=== PATIENT | male | born 1960 | race Hispanic/Latino ===

== ENCOUNTER 2016-12-20 01:02 | Emergency (ER) | payer OTHER ==
[2016-12-20 01:57] LABS: Basophils % (Auto) 0.8 % (0.0-1.8); Eosinophils % (Auto) 1.9 % (0.0-4.3); Hematocrit 48.8 % (35.5-45.6); Hemoglobin 16.4 gm/dl (11.8-15.2); Mean Corpuscular HGB Conc 34 % (32-34); Mean Corpuscular Hemoglobin 32 pg (28-32); Mean Corpuscular Volume 94 fl (84-94); Platelet Count 182 K/mm3 (140-440); Red Blood Count 5.19 M/mm3 (3.65-5.03); Red Cell Distribution Width 13.9 % (13.2-15.2); White Blood Count 8.2 K/mm3 (4.5-11.0)
[2016-12-20 02:20] LABS: Bacteria,Urine 1+ /HPF (Negative); Bilirubin,Urine NEG (Negative); Blood,Urine SM (Negative); Ketones,Urine TR mg/dL (Negative); Leukocyte Esterase,Urine SM (Negative); Mucus,Urine 3+ /HPF; Nitrite,Urine NEG (Negative); Protein,Urine <15 mg/dL mg/dL (Negative); Urobilinogen,Urine < 2.0 mg/dL (<2.0)
[2016-12-20 02:22] LABS: Alanine Aminotransferase 15 units/L (7-56); Albumin 4.1 g/dL (3.9-5); Albumin/Globulin Ratio 1.6 %; Alkaline Phosphatase 70 units/L (35-129); Anion Gap 19 mmol/L; BUN/Creatinine Ratio 14.28; Bilirubin,Total 0.4 mg/dL (0.1-1.2); Blood Urea Nitrogen 10 mg/dL (9-20); Calcium 9.1 mg/dL (8.4-10.2); Carbon Dioxide 22 mmol/L (22-30); Chloride 105.7 mmol/L (98-107); Glucose 99 mg/dL (75-100); Lipase 21 units/L (13-60); Potassium 3.6 mmol/L (3.6-5.0); Sodium 143 mmol/L (137-145); Total Protein 6.7 g/dL (6.3-8.2)
--- NOTE | 2016-12-20 10:51 | Emergency Department Report ---
<JOAQUÍN LEGER - Last Filed: 12/20/16 18:43> ED Abdominal Pain HPI - General Chief Complaint: Abdominal Pain Stated Complaint: RT SIDE PAIN Time Seen by Provider: 12/20/16 10:47 Source: patient Mode of arrival: Ambulatory Limitations: No Limitations - History of Present Illness Initial Comments: Patient complaining of 2 weeks intermittent right lower quadrant pain patient denies nausea vomiting or diarrhea associated with this pain, also denies fever or chills, or testicular pain. Patient noted have a bag of food with him in the exam room. MD Complaint: abdominal pain -: week(s) Location: RLQ Migration to: no migration Severity: moderate Severity scale (0 -10): 5 Quality: aching Consistency: intermittent, colicky Worsens With: movement Associated Symptoms: denies: nausea, vomiting, diarrhea, fever, chills, constipation, dysuria - Related Data Previous Rx's Medication Instructions Recorded Last Taken Type Ciprofloxacin [Ciprofloxacin ORAL 500 mg PO Q12H #28 ml 12/20/16 Unknown Rx LIQ] metroNIDAZOLE [Flagyl] 500 mg PO Q12HR #28 tab 12/20/16 Unknown Rx Allergies Allergy/AdvReac Type Severity Reaction Status Date / Time morphine Allergy Vomiting Verified 12/20/16 01:24 sulfamethoxazole Allergy Rash Verified 12/20/16 01:24 [From Bactrim] trimethoprim [From Bactrim] Allergy Rash Verified 12/20/16 01:24 ED Review of Systems ROS: Stated complaint: RT SIDE PAIN Other details as noted in HPI Constitutional: denies: chills, fever, malaise Eyes: as per HPI Respiratory: denies: cough, orthopnea, shortness of breath, SOB with exertion, SOB at rest, wheezing Cardiovascular: denies: chest pain, palpitations, dyspnea on exertion, orthopnea , edema, syncope Gastrointestinal: abdominal pain. denies: nausea, vomiting, diarrhea, constipation Genitourinary: denies: urgency, dysuria, frequency, hematuria, discharge, testicular pain, testicular mass Musculoskeletal: denies: back pain Skin: denies: rash, lesions Neurological: denies: headache, paresthesias, vertigo ED Past Medical Hx - Past Medical History Previous Medical History?: Yes Hx Hypertension: Yes Additional medical history: diverticulitis. high cholestrol. Vit D decfinacy - Surgical History Past Surgical History?: No - Medications Home Medications: Home Medications Medication Instructions Recorded Confirmed Last Taken Type Ciprofloxacin [Ciprofloxacin ORAL 500 mg PO Q12H #28 ml 12/20/16 Unknown Rx LIQ] metroNIDAZOLE [Flagyl] 500 mg PO Q12HR #28 tab 12/20/16 Unknown Rx ED Physical Exam - General Limitations: No Limitations General appearance: alert, in no apparent distress - Head Head exam: Present: atraumatic, normocephalic - Eye Eye exam: Present: normal appearance, PERRL, EOMI. Absent: scleral icterus - ENT ENT exam: Present: normal exam, mucous membranes moist - Neck Neck exam: Present: normal inspection, full ROM. Absent: tenderness, meningismus, lymphadenopathy - Respiratory Respiratory exam: Present: normal lung sounds bilaterally. Absent: respiratory distress, wheezes - Cardiovascular Cardiovascular Exam: Present: regular rate - GI/Abdominal GI/Abdominal exam: Present: soft, tenderness ([id number] right lower quadrant tenderness on palpation). Absent: distended, guarding, rebound - Extremities Exam Extremities exam: Present: normal inspection. Absent: normal capillary refill - Back Exam Back exam: Present: normal inspection. Absent: CVA tenderness (R), CVA tenderness (L) - Neurological Exam Neurological exam: Present: alert, oriented X3, CN II-XII intact - Skin Skin exam: Present: warm, dry, intact, normal color. Absent: rash ED Course Vital Signs 12/20/16 12/20/16 12/20/16 01:19 05:53 10:45 Temperature 98.4 F 98.1 F 98.5 F Pulse Rate 92 H 76 79 Respiratory 20 16 20 Rate Blood Pressure 122/88 121/78 Blood Pressure 131/82 [Right] O2 Sat by Pulse 97 97 98 Oximetry - Reevaluation(s) Reevaluation #1: 12/20/16 13:19 still resting comfortably in his room. Patient still has right lower quadrant pain on palpation. Still normotensive normal cardiac and afebrile 12/20/16 13:[address] and laboratory findings patient, will treat patient for diverticulitis which he says he has recurrent history of was just recently treated for. 12/20/16 18:44 ED Medical Decision Making - Lab Data Result diagrams: 12/20/16 01:38 12/20/16 01:38 Lab Results 0412/20/16 12/20/16 Range/Units 01:38 01:38 Unknown WBC 8.2 (4.5-11.0) K/mm3 RBC 5.19 H (3.65-5.03) M/mm3 Hgb 16.4 H (11.8-15.2) gm/dl Hct 48.8 H (35.5-45.6) % MCV 94 (84-94) fl MCH 32 (28-32) pg MCHC 34 (32-34) % RDW 13.9 (13.2-15.2) % Plt Count 182 (140-440) K/mm3 Lymph % (Auto) 35.2 H (13.4-35.0) % [place] % (Auto) 7.9 H (0.0-7.3) % Eos % (Auto) 1.9 (0.0-4.3) % Baso % (Auto) 0.8 (0.0-1.8) % Lymph # 2.9 (1.2-5.4) K/mm3 [place] # 0.6 (0.0-0.8) K/mm3 Eos # 0.2 (0.0-0.4) K/mm3 Baso # 0.1 (0.0-0.1) K/mm3 Seg Neutrophils % 54.2 (40.0-70.0) % Seg Neutrophils # 4.4 (1.8-7.7) K/mm3 Sodium 143 (137-145) mmol/L Potassium 3.6 (3.6-5.0) mmol/L Chloride 105.7 (98-107) mmol/L Carbon Dioxide 22 (22-30) mmol/L Anion Gap 19 mmol/L BUN 10 (9-20) mg/dL Creatinine 0.7 L (0.8-1.5) mg/dL Estimated GFR > 60 ml/min BUN/Creatinine Ratio 14.28 % Glucose 99 (75-100) mg/dL Calcium 9.1 (8.4-10.2) mg/dL Total Bilirubin 0.4 (0.1-1.2) mg/dL AST 17 (5-40) units/L ALT 15 (7-56) units/L Alkaline Phosphatase 70 (35-129) units/L Total Protein 6.7 (6.3-8.2) g/dL Albumin 4.1 (3.9-5) g/dL Albumin/Globulin Ratio 1.6 % Lipase 21 (13-60) units/L Urine Color Yellow (Yellow) Urine Turbidity Clear (Clear) Urine pH 5.0 (5.0-7.0) Ur Specific [place] 1.023 (1.003-1.030) Urine Protein <15 mg/dl (Negative) mg/dL Urine Glucose (UA) Neg (Negative) mg/dL Urine Ketones Tr (Negative) mg/dL Urine Blood Sm (Negative) Urine Nitrite Neg (Negative) Urine Bilirubin Neg (Negative) Urine Urobilinogen < 2.0 (<2.0) mg/dL Ur Leukocyte Esterase Sm (Negative) Urine WBC (Auto) 1.0 (0.0-6.0) /HPF Urine RBC (Auto) 7.0 (0.0-6.0) /HPF U Epithel Cells (Auto) < 1.0 (0-13.0) /HPF Urine Bacteria (Auto) 1+ (Negative) /HPF Urine Mucus 3+ /HPF Critical care attestation.: If time is entered above; I have spent that time in minutes in the direct care of this critically ill patient, excluding procedure time. ED Disposition Disposition: DISCHARGED TO HOME OR SELFCARE Is pt being admited?: No Condition: Stable Instructions: Diverticulitis (ED) Prescriptions: Ciprofloxacin [Ciprofloxacin ORAL LIQ] 500 mg PO Q12H #28 ml metroNIDAZOLE [Flagyl] 500 mg PO Q12HR #28 tab Referrals: AARON RAY MD [Primary Care Provider] - 3-5 Days <JC BARNETT - Last Filed: 12/22/16 02:04> ED Medical Decision Making - Lab Data Result diagrams: 12/20/16 01:38 12/20/16 01:38 - Radiology Data Radiology results: report reviewed (ct a/p: reviewed)
[2016-12-20] MEDS ORDERED: NACL 0.9% 1000 ML 1,000 ML IV ONE (11:14)
[2016-12-20] MEDS ORDERED: TORADOL IV ONE (11:14)
--- NOTE | 2016-12-20 12:54 | Cat Scan Report ---
CT abdomen and pelvis with contrast: Transverse images are obtained from lower chest to the ischium. Coronal and sagittal 2-D reformatted images are included. The visualized lung bases are unremarkable. There is a 3 cm splenic cyst. There is a 3.7 cm sharply defined low attenuation mass in his knee 18 mm mass in the medial right kidney that appears the same. in the upper pole of the left kidney. There is a 4.35 cm similar mass in the mid to lower kidney. There is an 8 mm nonobstructing calculus in the upper pole of the right kidney. The abdominal and retroperitoneal organs otherwise appear unremarkable. The abdominal aorta is unremarkable. There is no adenopathy noted. The bowel is unopacified. The appendix is visualized and appears normal. There are numerous diverticula in the sigmoid colon. There are inflammatory changes in the mesentery adjacent to the low sigmoid colon with linear extensions to the colon and an adjacent loop of small bowel. No fluid collections identified. No free air and no free fluid noted. The prostate gland appears slightly prominent in size with degenerative calcifications. Degenerative spondylosis is present through the lower thoracic and upper lumbar spine. Degenerative gas is identified at the L4-5 interspace and there is narrowing at L1-2 and L5-S1 interspaces. Impressions: 1. Sigmoid diverticulitis. Doubt perforation. 2. Bilateral renal cysts and nonobstructing right renal calculus. Described in 2012. 3. Splenic cyst described previously in 2012. 4. Degenerative lumbar spine changes.
[2016-12-20 13:45] VITALS: BP 131/82
== END 2016-12-20 13:52 | disposition home or self-care (01) ==
LOC: ED 01:02
DX: R10.31 Right lower quadrant pain (principal); I10 Essential (primary) hypertension; E78.00 Pure hypercholesterolemia, unspecified; Z88.5 Allergy status to narcotic agent; Z88.8 Allergy status to other drugs, medicaments and biological substances
CPT/HCPCS: 36415; 74177; 80053; 81001; 83690; 85025; 96361; 96374; 99284; J1885; J7030; Q9967

== ENCOUNTER 2018-01-01 22:04 | Inpatient (IN) | payer OTHER ==
[2018-01-02 01:26] LABS: Basophils % (Auto) 0.2 % (0.0-1.8); Hematocrit 47.1 % (35.5-45.6); Hemoglobin 15.8 gm/dl (11.8-15.2); Lymphocytes # (Auto) 0.8 K/mm3 (1.2-5.4); Lymphocytes % (Auto) 6.1 % (13.4-35.0); Mean Corpuscular HGB Conc 34 % (32-34); Mean Corpuscular Hemoglobin 33 pg (28-32); Mean Corpuscular Volume 97 fl (84-94); Monocytes # (Auto) 0.7 K/mm3 (0.0-0.8); Monocytes % (Auto) 4.9 % (0.0-7.3); Platelet Count 171 K/mm3 (140-440); Red Blood Count 4.85 M/mm3 (3.65-5.03); Red Cell Distribution Width 14.5 % (13.2-15.2)
[2018-01-02 01:42] LABS: Alanine Aminotransferase 12 units/L (7-56); Albumin 4.6 g/dL (3.9-5); BUN/Creatinine Ratio 13; Blood Urea Nitrogen 10 mg/dL (9-20); Hemolysis Index 8
[2018-01-02 02:25] LABS: Bilirubin,Urine NEG (Negative); Blood,Urine SM (Negative); Color,Urine Yellow (Yellow); Mucus,Urine FEW /HPF; Protein,Urine <15 mg/dL mg/dL (Negative); Urobilinogen,Urine < 2.0 mg/dL (<2.0)
[2018-01-02] MEDS ORDERED: ZOFRAN IV ONE (08:16)
[2018-01-02] MEDS ORDERED: DILAUDID IV ONE ×2 (08:16→10:17)
[2018-01-02] MEDS ORDERED: NACL 0.9% 500 ML 500 ML IV ONE (08:17)
--- NOTE | 2018-01-02 08:53 | Emergency Department Report ---
ED Abdominal Pain HPI - General Chief Complaint: Abdominal Pain Stated Complaint: ABD PAIN Time Seen by Provider: 01/02/18 08:10 Source: patient Mode of arrival: Ambulatory Limitations: No Limitations - History of Present Illness Initial Comments: 57-year-old male with a past medical history of hypertension, diverticulitis, and no previous abdominal surgeries presents complaining of right lower quadrant pain 1 day. It is constant, sharp, moderate to severe in intensity. Worse with palpation. No alleviating factors. Denies nausea, vomiting, fever, diarrhea, melena, hematochezia. Similar symptoms in the past with diagnosed diverticulitis last year but this pain episode is worse. Severity scale (0 -10): 8 - Related Data Previous Rx's Medication Instructions Recorded Last Taken Type Ciprofloxacin [Ciprofloxacin ORAL 500 mg PO Q12H #28 ml 12/20/16 Unknown Rx LIQ] metroNIDAZOLE [Flagyl] 500 mg PO Q12HR #28 tab 12/20/16 Unknown Rx Allergies Allergy/AdvReac Type Severity Reaction Status Date / Time morphine Allergy Vomiting Verified 12/20/16 01:24 sulfamethoxazole Allergy Rash Verified 12/20/16 01:24 [From Bactrim] trimethoprim [From Bactrim] Allergy Rash Verified 12/20/16 01:24 ED Review of Systems ROS: Stated complaint: ABD PAIN Other details as noted in HPI Comment: All other systems reviewed and negative ED Past Medical Hx - Past Medical History Previous Medical History?: Yes Hx Hypertension: Yes Additional medical history: diverticulitis. high cholestrol. Vit D decfinacy - Surgical History Past Surgical History?: No - Social History Smoking Status: Current Some Day Smoker Substance Use Type: None - Medications Home Medications: Home Medications Medication Instructions Recorded Confirmed Last Taken Type Ciprofloxacin [Ciprofloxacin ORAL 500 mg PO Q12H #28 ml 12/20/16 Unknown Rx LIQ] metroNIDAZOLE [Flagyl] 500 mg PO Q12HR #28 tab 12/20/16 Unknown Rx ED Physical Exam - General Limitations: No Limitations - Other Other exam information: General: No limitations, patient is alert in no acute distress Head exam: Atraumatic, normocephalic Eyes exam: Normal appearance, nonicteric sclerae ENT: Moist mucous membrane, normal oropharynx Neck exam: Normal inspection, full range of motion, no meningismus nontender Respiratory exam: Clear to auscultation bilateral, no wheezes, rales, crackles Cardiovascular: Normal rate and rhythm, normal heart sounds Abdomen: Soft, nondistended, right lower quadrant tenderness, with normal bowel sounds, no rebound, or guarding Extremity: Full range of motion normal inspection no deformity Back: Normal Inspection, full range of motion, no tenderness Neurologic: Alert, oriented x3, cranial nerves intact, no motor or sensory deficit Psychiatric: normal affect, normal mood Skin: Warm, dry, intact ED Course Vital Signs 01/02/18 01/02/18 01/02/18 00:56 04:30 07:43 Temperature 99.5 F 98.9 F Pulse Rate 98 H 93 H 86 Respiratory 18 16 18 Rate Blood Pressure 148/79 124/74 Blood Pressure 113/63 [Left] O2 Sat by Pulse 98 98 96 Oximetry 01/02/18 01/02/18 07:44 09:27 Temperature Pulse Rate Respiratory 18 18 Rate Blood Pressure Blood Pressure [Left] O2 Sat by Pulse 96 Oximetry - Reevaluation(s) Reevaluation #1: 01/02/18 09:57 no improvement in pain with dilaudid 0.5mg, no nausea, additional meds ordered - Consultations Consultation #1: 01/02/18 10:07 Dr Modi to consult 01/02/18 10:18 case d/w Dr modi Recommend to remain nothing by mouth, continue Zosyn, he will evaluate patient ED Medical Decision Making - Lab Data Result diagrams: 01/02/18 01:01 01/02/18 01:04 Lab Results 01/02/18 01/02/18 01/02/18 Range/Units 01:01 01:04 01:55 WBC 13.7 H (4.5-11.0) K/mm3 RBC 4.85 (3.65-5.03) M/mm3 Hgb 15.8 H (11.8-15.2) gm/dl Hct 47.1 H (35.5-45.6) % MCV 97 H (84-94) fl MCH 33 H (28-32) pg MCHC 34 (32-34) % RDW 14.5 (13.2-15.2) % Plt Count 171 (140-440) K/mm3 Lymph % (Auto) 6.1 L (13.4-35.0) % [place] % (Auto) 4.9 (0.0-7.3) % Eos % (Auto) 0.0 (0.0-4.3) % Baso % (Auto) 0.2 (0.0-1.8) % Lymph # 0.8 L (1.2-5.4) K/mm3 [place] # 0.7 (0.0-0.8) K/mm3 Eos # 0.0 (0.0-0.4) K/mm3 Baso # 0.0 (0.0-0.1) K/mm3 Seg Neutrophils % 88.8 H (40.0-70.0) % Seg Neutrophils # 12.2 H (1.8-7.7) K/mm3 Sodium 138 (137-145) mmol/L Potassium 4.7 (3.6-5.0) mmol/L Chloride 97.5 L (98-107) mmol/L Carbon Dioxide 24 (22-30) mmol/L Anion Gap 21 mmol/L BUN 10 (9-20) mg/dL Creatinine 0.8 (0.8-1.5) mg/dL Estimated GFR > 60 ml/min BUN/Creatinine Ratio 13 % Glucose 104 H (75-100) mg/dL Calcium 9.0 (8.4-10.2) mg/dL Total Bilirubin 0.80 (0.1-1.2) mg/dL AST 13 (5-40) units/L ALT 12 (7-56) units/L Alkaline Phosphatase 83 (35-129) units/L Total Protein 6.6 (6.3-8.2) g/dL Albumin 4.6 (3.9-5) g/dL Albumin/Globulin Ratio 2.3 % Urine Color Yellow (Yellow) Urine Turbidity Clear (Clear) Urine pH 5.0 (5.0-7.0) Ur Specific [place] 1.014 (1.003-1.030) Urine Protein <15 mg/dl (Negative) mg/dL Urine Glucose (UA) Neg (Negative) mg/dL Urine Ketones 20 (Negative) mg/dL Urine Blood Sm (Negative) Urine Nitrite Neg (Negative) Urine Bilirubin Neg (Negative) Urine Urobilinogen < 2.0 (<2.0) mg/dL Ur Leukocyte Esterase Tr (Negative) Urine WBC (Auto) 1.0 (0.0-6.0) /HPF Urine RBC (Auto) 2.0 (0.0-6.0) /HPF U Epithel Cells (Auto) < 1.0 (0-13.0) /HPF Urine Mucus Few /HPF - Radiology Data Radiology results: report reviewed ct a/p IV contrast read by radiologist: IMPRESSION: Acute sigmoid diverticulitis. Trace free peritoneal air is identified but no evidence for abscess at this time. Bilateral renal cysts. Right renal calculus, nonobstructing. - Medical Decision Making Lower quadrant pain secondary to acute sigmoid diverticulitis with trace free air. Patient given Zosyn, dilaudid, zofran in the ED. Surgery consulted. Plan to admit the hospital. - Differential Diagnosis appendicitis, diverticulitis, UTI, renal colic Critical Care Time: No Critical care attestation.: If time is entered above; I have spent that time in minutes in the direct care of this critically ill patient, excluding procedure time. ED Disposition Clinical Impression: Acute diverticulitis, Free intraperitoneal air Disposition: 09 OP ADMIT IP TO THIS HOSP Is pt being admited?: Yes Condition: Stable Time of Disposition: 09:57 (hospitalist/Dr Mcdaniel/Dr Hirsch)
[2018-01-02] MEDS ORDERED: ZOSYN/NS 4.5GM/100ML 4.5 GM/100 ML VIAL IV SCH (09:00)
--- NOTE | 2018-01-02 09:37 | Cat Scan Report ---
CT ABDOMEN PELVIS WITH CONTRAST: HISTORY: Right lower quadrant pain, history of diverticulitis. COMPARISON: 12/20/16. TECHNIQUE: Helical CT in 1.25mm intervals following IV contrast. Sagittal and coronal reconstructions. FINDINGS: Lung bases: Normal. Liver: Normal. Biliary system: Normal. Pancreas: Normal. Spleen: Normal size spleen. A 2.5 cm cyst with focal wall calcification is noted in the anterior spleen which is unchanged. Kidneys/ureters/bladder: There are 2 simple cysts in the superior left kidney measuring 4.6 cm and 3.4 cm. A 1 cm cyst is noted in the mid right kidney. An 8 mm calyceal stone is noted at the inferior pole of the right kidney. Ureters and bladder are unremarkable. The prostate gland is mildly enlarged measuring 5.9 cm in diameter. Adrenal glands: Normal. Aorta: Normal. Intestines: There are scattered diverticula in the sigmoid colon with mild circumferential bowel wall thickening and surrounding fat stranding. This is consistent with acute sigmoid diverticulitis. There is no evidence for abscess, however, trace to small free air is identified in the right lower quadrant mesentery and along the anterior abdominal wall. Appendix: Normal. Pelvic viscera: Normal. Ascites: None. Adenopathy: None. Musculoskeletal: There is moderate thoracolumbar spondylosis. No evidence for fracture or suspicious bony lesion. IMPRESSION: Acute sigmoid diverticulitis. Trace free peritoneal air is identified but no evidence for abscess at this time. Bilateral renal cysts. Right renal calculus, nonobstructing. These findings were discussed with Dr. Campos in the emergency department at 0920 hours.
--- NOTE | 2018-01-02 12:17 | History and Physical Report ---
History of Present Illness Date of examination: 01/02/18 Date of admission: 01/02/18 10:08 Chief complaint: Abdominal pains History of present illness: Patient is a 57 yo man with a history of hypertension, tobacco dependency, insomnia, dyslipidemia and recurrent diverticulitis who presents to the ED with severe right lower quadrant non radiating pains, achy, throbbing and non- radiating that started on Sunday as intermittent pains, now constant and severe without aggravating or relieving factors. He denies n/v/fevers/chills/cough/cp/ sob. The abd pains is similar to prior attacks; his last attack was about 1 year ago. He usually is treated with 2 iv abx for couple of days then discharge. He is followed closely by GI, Dr. Olmstead. PMH: as hpi, also bph PSH: tonsillectomy SH: 1 pack cig/week, no etoh or illegal drug use FH: sister and brother have hypertension and dm ROS: Constitutional: denies: fever ENT: denies: throat or neck pain Respiratory: denies: cough, shortness of breath Cardiovascular: denies: chest pain Endocrine: denies unexplained weight loss or gain Gastrointestinal: + abdominal pains, no nausea Genitourinary: denies: dysuria Rectal: denies no incontinence, no bleeding, no itching, no discharge Musculoskeletal: denies swelling, myaglia, muscle weakness Skin: denies: rash Neurological: denies: headache Hematological/Lymphatic: denies: easy bleeding or easy bruising Allergic/Immunologic: no urticaria, no allergic rhinitis, no anaphylaxis Psych: denies sadness or hopelessness, SI/HI Medications and Allergies Allergies Allergy/AdvReac Type Severity Reaction Status Date / Time morphine Allergy Vomiting Verified 12/20/16 01:24 sulfamethoxazole Allergy Rash Verified 12/20/16 01:24 [From Bactrim] trimethoprim [From Bactrim] Allergy Rash Verified 12/20/16 01:24 Home Medications Medication Instructions Recorded Confirmed Last Taken Type metroNIDAZOLE [Flagyl] 500 mg PO Q12HR #28 tab 12/20/16 01/02/18 01/01/[address] [Voltaren Dr] 75 mg PO BID 01/02/18 01/02/18 01/01/18 History Dicyclomine [Bentyl] 10 mg PO QID 01/02/18 01/02/18 01/01/18 History Ergocalciferol [Vitamin D2] 1 cap PO QWEEK 01/02/18 01/02/18 01/01/18 History Levofloxacin [Levaquin TAB] 500 mg PO QDAY 01/02/18 01/02/18 01/01/18 History Omeprazole 20 mg PO DAILY 01/02/18 01/02/18 01/01/18 History Pravastatin [Pravachol] 20 mg PO QHS 01/02/18 01/02/18 01/01/18 History Tamsulosin [Flomax] 0.4 mg PO QDAY 01/02/18 01/02/18 01/01/18 History Zolpidem [Ambien] 10 mg PO QHS 01/02/18 01/02/18 01/01/18 History amLODIPine [Norvasc] 5 mg PO BID 01/02/18 01/02/18 01/01/18 History Active Meds: Active Medications Piperacillin Sod/Tazobactam Sod (Zosyn/Ns 4.5gm/100ml) 4.5 gm in 100 mls @ 200 mls/hr IV ONCE MILA Last Infusion: 01/02/18 11:24 Dose: Infused Exam - Physical Exam Narrative exam: GEN: WDWN, NAD, Awake, Alert, Orientated HEENT: NCAT, EOMI, PERRL, OP Clear NECK: supple, no adenopathy, no thyromegaly, no JVD CVS/HEART: RRR, normal S1S2, pulses present bilaterally CHEST/LUNGS: CTA B, Symmetrical chest expansion, good air entry bilaterally GI/Abdomen: soft, NTND, good bowel sounds, no guarding or rebound /Bladder: no suprapubic tenderness, no CVA or paraspinal tenderness EXT/Skin: no c/c/e, no obvious rash MSK: FROM x 4 Neuro: CN 2-12 grossly intact, no new focal deficits Psych: calm - Constitutional Vitals: Temp Pulse Resp BP Pulse Ox 98.9 F 91 H 20 133/55 95 01/02/18 07:43 01/02/18 11:00 01/02/18 11:50 01/02/18 11:00 01/02/18 11:00 Results - Labs CBC & Chem 7: 01/02/18 01:01 01/02/18 01:04 Labs: Abnormal lab results 01/02/18 01/02/18 Range/Units 01:01 01:04 WBC 13.7 H (4.5-11.0) K/mm3 Hgb 15.8 H (11.8-15.2) gm/dl Hct 47.1 H (35.5-45.6) % MCV 97 H (84-94) fl MCH 33 H (28-32) pg Lymph % (Auto) 6.1 L (13.4-35.0) % Lymph # 0.8 L (1.2-5.4) K/mm3 Seg Neutrophils % 88.8 H (40.0-70.0) % Seg Neutrophils # 12.2 H (1.8-7.7) K/mm3 Chloride 97.5 L (98-107) mmol/L Glucose 104 H (75-100) mg/dL Assessment and Plan Patient is a 57 yo man with a history of hypertension, tobacco dependency, insomnia, dyslipidemia and recurrent diverticulitis who presents to the ED with severe right lower quadrant non radiating pains, achy, throbbing and non- radiating that started on Sunday as intermittent pains, now constant and severe without aggravating or relieving factors. He denies n/v/fevers/chills/cough/cp/ sob. The abd pains is similar to prior attacks; his last attack was about 1 year ago. He usually is treated with 2 iv abx for couple of days then discharge. He is followed closely by GI, Dr. Olmstead. CT abd/pelvis with iv contrast IMPRESSION: Acute sigmoid diverticulitis. Trace free peritoneal air is identified but no evidence for abscess at this time. Bilateral renal cysts. Right renal calculus, nonobstructing. -Sepsis, poa as evident by heart rate 98, wbc 13.7 with diverticulitits: treat with ivf, iv abx -Acute Diverticulitis with possible microperfortation: bowel rest, iv abx, General surgery already consulted by ED physician -Hypertension: hold oral antihypertensive, use iv labetalolo prn -Tobacco dependency: claims counsel on stopping -Insomnia: hold oral ambien, use prn iv ativan Dvt/gi ppx reviewed
[2018-01-02] MEDS ORDERED: NORMODYNE IV PRN (13:12)
[2018-01-02] MEDS: FLAGYL 500 MG/100 ML 500 MG/100 ML BAG IV SCH ×2 (14:00→22:38)
[2018-01-02] MEDS: LEVAQUIN 500MG/100ML 500 MG/100 ML BAG IV SCH (14:00)
--- NOTE | 2018-01-02 15:03 | Progress Note ---
Assessment and Plan Full consult dictated Chief complaint: RLQ abd paiin History of present illness: Patient is a 57 yo man with a history of hypertension, tobacco dependency, insomnia, dyslipidemia and recurrent diverticulitis who presents to the ED with severe right lower quadrant non radiating pains, achy, throbbing and non- radiating that started on Sunday as intermittent pains, now constant and severe without aggravating or relieving factors. He denies n/v/fevers/chills/cough/cp/ sob. The abd pains is similar to prior attacks; his last attack was about 1 year ago. He usually is treated with 2 iv abx for couple of days then discharge. He is followed closely by GI, Dr. Olmstead. Pt "feeling better" hx of "multiple attacks of diverticulitis in the past" refuses surg Abd - localized RLQ tenderness with guarding. rest of abd soft, non tender CT - microperforation of diverticulits is redundant sigmoid colon (flops to RLQ ). No evidence of free fluid or abscess formation. imp - recurrent diverticulits with microperforation. pt refusing surg at this time "feeling better" rec strict NPO IVF hydration. IV Levaquin & Flagyl as you are doing f/u cbc in am will follow and reassess clinically in am Selected Entries 01/02/18 11:57 Temperature 99.0 F Pulse Rate 86 Respiratory 22 Rate Blood Pressure 106/63 Laboratory Tests 01/02/18 01/02/18 01:01 01:04 WBC 13.7 H Hgb 15.8 H Hct 47.1 H Sodium 138 Potassium 4.7 Chloride 97.5 L Carbon Dioxide 24 BUN 10 Creatinine 0.8 Objective Vital Signs - 12hr 01/02/18 01/02/18 01/02/18 04:30 07:32 07:43 Temperature 98.9 F Pulse Rate 93 H 86 Respiratory 16 18 Rate Blood Pressure 124/74 Blood Pressure 113/63 [Left] O2 Sat by Pulse 98 96 96 Oximetry 01/02/18 01/02/18 01/02/18 07:44 07:46 08:00 Temperature Pulse Rate 88 85 Respiratory 18 18 29 H Rate Blood Pressure 113/63 122/65 Blood Pressure [Left] O2 Sat by Pulse 96 94 Oximetry 01/02/18 01/02/18 01/02/18 08:16 08:30 09:06 Temperature Pulse Rate 86 85 87 Respiratory 14 22 18 Rate Blood Pressure 122/65 122/65 122/65 Blood Pressure [Left] O2 Sat by Pulse 98 96 94 Oximetry 01/02/18 01/02/18 01/02/18 09:16 09:27 09:30 Temperature Pulse Rate 86 88 Respiratory 24 18 21 Rate Blood Pressure 122/65 122/65 Blood Pressure [Left] O2 Sat by Pulse 97 94 Oximetry 01/02/18 01/02/18 01/02/18 09:46 10:00 10:16 Temperature Pulse Rate 88 91 H 91 H Respiratory 27 H 11 L 15 Rate Blood Pressure 122/65 133/55 133/55 Blood Pressure [Left] O2 Sat by Pulse 88 96 93 Oximetry 01/02/18 01/02/18 01/02/18 10:30 10:46 11:00 Temperature Pulse Rate 89 92 H 91 H Respiratory 17 20 16 Rate Blood Pressure 133/55 133/55 133/55 Blood Pressure [Left] O2 Sat by Pulse 94 92 95 Oximetry 01/02/18 01/02/18 01/02/18 11:10 11:50 11:57 Temperature 99.0 F Pulse Rate 100 H 86 Respiratory 23 20 22 Rate Blood Pressure 133/55 106/63 Blood Pressure [Left] O2 Sat by Pulse 94 93 Oximetry - Labs 01/02/18 01:01 01/02/18 01:04 Diabetes panel 01/02/18 Range/Units 01:04 Sodium 138 (137-145) mmol/L Potassium 4.7 (3.6-5.0) mmol/L Chloride 97.5 L (98-107) mmol/L Carbon Dioxide 24 (22-30) mmol/L BUN 10 (9-20) mg/dL Creatinine 0.8 (0.8-1.5) mg/dL Glucose 104 H (75-100) mg/dL Calcium 9.0 (8.4-10.2) mg/dL AST 13 (5-40) units/L ALT 12 (7-56) units/L Alkaline Phosphatase 83 (35-129) units/L Total Protein 6.6 (6.3-8.2) g/dL Albumin 4.6 (3.9-5) g/dL Calcium panel 01/02/18 Range/Units 01:04 Calcium 9.0 (8.4-10.2) mg/dL Albumin 4.6 (3.9-5) g/dL Pituitary panel 01/02/18 Range/Units 01:04 Sodium 138 (137-145) mmol/L Potassium 4.7 (3.6-5.0) mmol/L Chloride 97.5 L (98-107) mmol/L Carbon Dioxide 24 (22-30) mmol/L BUN 10 (9-20) mg/dL Creatinine 0.8 (0.8-1.5) mg/dL Glucose 104 H (75-100) mg/dL Calcium 9.0 (8.4-10.2) mg/dL Adrenal panel 01/02/18 Range/Units 01:04 Sodium 138 (137-145) mmol/L Potassium 4.7 (3.6-5.0) mmol/L Chloride 97.5 L (98-107) mmol/L Carbon Dioxide 24 (22-30) mmol/L BUN 10 (9-20) mg/dL Creatinine 0.8 (0.8-1.5) mg/dL Glucose 104 H (75-100) mg/dL Calcium 9.0 (8.4-10.2) mg/dL Total Bilirubin 0.80 (0.1-1.2) mg/dL AST 13 (5-40) units/L ALT 12 (7-56) units/L Alkaline Phosphatase 83 (35-129) units/L Total Protein 6.6 (6.3-8.2) g/dL Albumin 4.6 (3.9-5) g/dL
[2018-01-02] MEDS ORDERED: NARCAN 0.4 MG/1 ML IV PRN (16:55)
[2018-01-02] MEDS: DILAUDID IV PRN (18:25)
[2018-01-02] MEDS: PROTONIX IV SCH (18:53)
--- NOTE | 2018-01-02 21:48 | Consultation ---
REASON FOR CONSULTATION: Abdominal pain, rule out diverticulitis with possible microperforation. HISTORY OF PRESENT ILLNESS: The patient is a 57-year-old gentleman who was admitted today with approximately a 2-day history of right lower quadrant abdominal pain. Denies any nausea or vomiting. The patient states he has had a past history of multiple bouts of diverticulitis in the past, but adamantly refuses surgery at this time. He does; however, state he is than when I was admitted. PAST MEDICAL HISTORY: Pertinent for hypertension, high cholesterol. PAST SURGICAL HISTORY: Status post T and A. ALLERGIES: Allergic to BACTRIM AND MORPHINE. MEDICATIONS: Include his blood pressure medicines his high cholesterol. FAMILY HISTORY: Heart disease. SOCIAL HISTORY: Denies any ethanol intake. Smokes what he states is a pack per week for approximately 45 years. He states he the past. PHYSICAL EXAMINATION: GENERAL: At this time reveals the patient to be awake, alert, cooperative, resting comfortably in bed with no evidence of acute distress. VITAL SIGNS: Show him to be afebrile with a very low grade temperature of 99, blood pressure of 106/63, pulse of 86, respirations of 22. ABDOMEN: Examination of the abdomen reveals to be moderately obese. The abdomen is soft in the left lower quadrant, left upper quadrant and right upper quadrant areas. The right lower quadrant; however, does exhibit a localized tenderness with guarding. Bowel sounds are hypoactive. LABORATORY DATA: At present includes a CBC which shows a white count of 13.7, H and H is 15.8 and 47.1. Electrolytes are essentially within normal limits as are the LFTs. IMAGING DATA: A CT scan of the abdomen has been performed, which I have reviewed with Dr. Kelly, the radiologist. There is evidence of microperforation and a very redundant sigmoid colon, which loops over to the right lower quadrant. There are also very small pockets of minute gas bubbles in a couple of areas in the abdomen. However, there is no evidence of any free fluid or abscess formation. IMPRESSION: 1. At this time is that of a 57-year-old gentleman with a history of multiple diverticulitis attacks in the past. 2. Active and current diverticulitis with evidence of microperforation on CT. The patient at this time is adamantly refusing any surgery. RECOMMENDATIONS: To keep the patient strict n.p.o. IV fluid hydration. IV Levaquin and Flagyl as you are doing. I will repeat CBC in the morning and monitor clinically closely with you. JOB# [id number] GORDON/KIESHA
[2018-01-03] MEDS: DILAUDID IV PRN ×5 (01:23→22:53)
[2018-01-03] MEDS: FLAGYL 500 MG/100 ML 500 MG/100 ML BAG IV SCH ×3 (05:10→21:46)
[2018-01-03] MEDS: D5/0.45NS 1,000 ML IV SCH ×2 (05:12→18:24)
[2018-01-03 06:40] LABS: Basophils % (Auto) 0.2 % (0.0-1.8); Eosinophils # (Auto) 0.1 K/mm3 (0.0-0.4); Eosinophils % (Auto) 0.7 % (0.0-4.3); Hematocrit 40.4 % (35.5-45.6); Hemoglobin 13.8 gm/dl (11.8-15.2); Lymphocytes # (Auto) 1.6 K/mm3 (1.2-5.4); Lymphocytes % (Auto) 16.2 % (13.4-35.0); Mean Corpuscular HGB Conc 34 % (32-34); Mean Corpuscular Hemoglobin 33 pg (28-32); Mean Corpuscular Volume 97 fl (84-94); Monocytes # (Auto) 0.7 K/mm3 (0.0-0.8); Monocytes % (Auto) 7.2 % (0.0-7.3); Platelet Count 137 K/mm3 (140-440); Red Blood Count 4.18 M/mm3 (3.65-5.03); Red Cell Distribution Width 14.4 % (13.2-15.2)
[2018-01-03 07:04] LABS: BUN/Creatinine Ratio 14; Blood Urea Nitrogen 11 mg/dL (9-20); Calcium 8.7 mg/dL (8.4-10.2); Hemolysis Index 4
--- NOTE | 2018-01-03 08:02 | Progress Note ---
Assessment and Plan Pt afebrile. "feeling better" Abd soft. still RLQ abd tenderness. slightly improved but still present. wbc down to 9.9 stable keep npo continue present care Selected Entries 01/03/18 07:26 Temperature 97.8 F Pulse Rate 75 Respiratory 18 Rate Blood Pressure 111/62 Laboratory Tests 01/02/18 01/03/18 01:01 05:30 WBC 13.7 H 9.9 Hgb 15.8 H 13.8 Hct 47.1 H 40.4 D Objective Vital Signs - 12hr 01/02/18 01/03/18 01/03/18 23:20 01:23 07:26 Temperature 99.4 F 97.8 F Pulse Rate 80 75 Respiratory 18 18 18 Rate Blood Pressure 104/61 111/62 O2 Sat by Pulse 91 92 Oximetry - Labs 01/03/18 05:30 01/03/18 05:30 Diabetes panel 01/03/18 Range/Units 05:30 Sodium 140 (137-145) mmol/L Potassium 3.7 D (3.6-5.0) mmol/L Chloride 99.9 (98-107) mmol/L Carbon Dioxide 28 (22-30) mmol/L BUN 11 (9-20) mg/dL Creatinine 0.8 (0.8-1.5) mg/dL Glucose 96 (75-100) mg/dL Calcium 8.7 (8.4-10.2) mg/dL Calcium panel 01/03/18 Range/Units 05:30 Calcium 8.7 (8.4-10.2) mg/dL Pituitary panel 01/03/18 Range/Units 05:30 Sodium 140 (137-145) mmol/L Potassium 3.7 D (3.6-5.0) mmol/L Chloride 99.9 (98-107) mmol/L Carbon Dioxide 28 (22-30) mmol/L BUN 11 (9-20) mg/dL Creatinine 0.8 (0.8-1.5) mg/dL Glucose 96 (75-100) mg/dL Calcium 8.7 (8.4-10.2) mg/dL Adrenal panel 01/03/18 Range/Units 05:30 Sodium 140 (137-145) mmol/L Potassium 3.7 D (3.6-5.0) mmol/L Chloride 99.9 (98-107) mmol/L Carbon Dioxide 28 (22-30) mmol/L BUN 11 (9-20) mg/dL Creatinine 0.8 (0.8-1.5) mg/dL Glucose 96 (75-100) mg/dL Calcium 8.7 (8.4-10.2) mg/dL
--- NOTE | 2018-01-03 09:47 | Progress Note ---
Assessment and Plan Assessment and plan: Patient is a 57 yo man with a history of hypertension, tobacco dependency, insomnia, dyslipidemia and recurrent diverticulitis who presents to the ED with severe right lower quadrant non radiating pains, achy, throbbing and non- radiating that started on Sunday as intermittent pains, now constant and severe without aggravating or relieving factors. He denies n/v/fevers/chills/cough/cp/ sob. The abd pains is similar to prior attacks; his last attack was about 1 year ago. He usually is treated with 2 iv abx for couple of days then discharge. He is followed closely by GI, Dr. Olmstead. CT abd/pelvis with iv contrast IMPRESSION: Acute sigmoid diverticulitis. Trace free peritoneal air is identified but no evidence for abscess at this time. Bilateral renal cysts. Right renal calculus, nonobstructing. -Sepsis, poa as evident by heart rate 98, wbc 13.7 with diverticulitits: treat with ivf, iv abx -Acute Sigmoid Diverticulitis with microperfortation: bowel rest, iv abx, General surgery following, pain control with iv narcotics -Hypertension: hold oral antihypertensive, use iv labetalol prn -Tobacco dependency: correctional counselor on stopping -Insomnia: hold oral ambien, use prn iv ativan Dvt/gi ppx reviewed continue npo, ivf, iv abx labs stable, wbc normal now, no need to re-order tomorrow History Interval history: Patient was seen and examined. Follow-up on current diagnosis. Overnight uneventful. Patient denies any chest pain, shortness breath, nausea/vomiting or severe headaches. Imaging, nursing note, chart, labs and old chart reviewed. Discussed with patient. Hospitalist Physical - Physical exam Narrative exam: GEN: WDWN, NAD, Awake, Alert, Orientated x 3 HEENT: NCAT, EOMI, PERRL, OP Clear NECK: supple, no adenopathy, no thyromegaly, no JVD CVS/HEART: RRR, normal S1S2, pulses present bilaterally CHEST/LUNGS: CTA B, Symmetrical chest expansion, good air entry bilaterally GI/Abdomen: soft, RLQ tender no subq air palp, good bowel sounds, no guarding or rebound /Bladder: no suprapubic tenderness, no CVA or paraspinal tenderness EXT/Skin: no c/c/e, no obvious rash MSK: FROM x 4 Neuro: CN 2-12 grossly intact, no new focal deficits Psych: calm - Constitutional Vitals: Temp Pulse Resp BP Pulse Ox 97.8 F 75 18 111/62 92 01/03/18 07:26 01/03/18 07:26 01/03/18 07:26 01/03/18 07:26 01/03/18 07:26 Results - Labs CBC & Chem 7: 01/03/18 05:30 01/03/18 05:30 Labs: Laboratory Last Values WBC 9.9 K/mm3 (4.5-11.0) 01/03/18 05:30 RBC 4.18 M/mm3 (3.65-5.03) 01/03/18 05:30 Hgb 13.8 gm/dl (11.8-15.2) 01/03/18 05:30 Hct 40.4 % (35.5-45.6) D 01/03/18 05:30 MCV 97 fl (84-94) H 01/03/18 05:30 MCH 33 pg (28-32) H 01/03/18 05:30 MCHC 34 % (32-34) 01/03/18 05:30 RDW 14.4 % (13.2-15.2) 01/03/18 05:30 Plt Count 137 K/mm3 (140-440) L 01/03/18 05:30 Lymph % (Auto) 16.2 % (13.4-35.0) 01/03/18 05:30 [place] % (Auto) 7.2 % (0.0-7.3) 01/03/18 05:30 Eos % (Auto) 0.7 % (0.0-4.3) 01/03/18 05:30 Baso % (Auto) 0.2 % (0.0-1.8) 01/03/18 05:30 Lymph # 1.6 K/mm3 (1.2-5.4) 01/03/18 05:30 [place] # 0.7 K/mm3 (0.0-0.8) 01/03/18 05:30 Eos # 0.1 K/mm3 (0.0-0.4) 01/03/18 05:30 Baso # 0.0 K/mm3 (0.0-0.1) 01/03/18 05:30 Seg Neutrophils % 75.7 % (40.0-70.0) H 01/03/18 05:30 Seg Neutrophils # 7.5 K/mm3 (1.8-7.7) 01/03/18 05:30 Sodium 140 mmol/L (137-145) 01/03/18 05:30 Potassium 3.7 mmol/L (3.6-5.0) D 01/03/18 05:30 Chloride 99.9 mmol/L (98-107) 01/03/18 05:30 Carbon Dioxide 28 mmol/L (22-30) 01/03/18 05:30 Anion Gap 16 mmol/L 01/03/18 05:30 BUN 11 mg/dL (9-20) 01/03/18 05:30 Creatinine 0.8 mg/dL (0.8-1.5) 01/03/18 05:30 Estimated GFR > 60 ml/min 01/03/18 05:30 BUN/Creatinine Ratio 14 % 01/03/18 05:30 Glucose 96 mg/dL (75-100) 01/03/18 05:30 Calcium 8.7 mg/dL (8.4-10.2) 01/03/18 05:30 Total Bilirubin 0.80 mg/dL (0.1-1.2) 01/02/18 01:04 AST 13 units/L (5-40) 01/02/18 01:04 ALT 12 units/L (7-56) 01/02/18 01:04 Alkaline Phosphatase 83 units/L (35-129) 01/02/18 01:04 Total Protein 6.6 g/dL (6.3-8.2) 01/02/18 01:04 Albumin 4.6 g/dL (3.9-5) 01/02/18 01:04 Albumin/Globulin Ratio 2.3 % 01/02/18 01:04 Urine Color Yellow (Yellow) 01/02/18 01:55 Urine Turbidity Clear (Clear) 01/02/18 01:55 Urine pH 5.0 (5.0-7.0) 01/02/18 01:55 Ur Specific Levels 1.014 (1.003-1.030) 01/02/18 01:55 Urine Protein <15 mg/dl mg/dL (Negative) 01/02/18 01:55 Urine Glucose (UA) Neg mg/dL (Negative) 01/02/18 01:55 Urine Ketones 20 mg/dL (Negative) 01/02/18 01:55 Urine Blood Sm (Negative) 01/02/18 01:55 Urine Nitrite Neg (Negative) 01/02/18 01:55 Urine Bilirubin Neg (Negative) 01/02/18 01:55 Urine Urobilinogen < 2.0 mg/dL (<2.0) 01/02/18 01:55 Ur Leukocyte Esterase Tr (Negative) 01/02/18 01:55 Urine WBC (Auto) 1.0 /HPF (0.0-6.0) 01/02/18 01:55 Urine RBC (Auto) 2.0 /HPF (0.0-6.0) 01/02/18 01:55 U Epithel Cells (Auto) < 1.0 /HPF (0-13.0) 01/02/18 01:55 Urine Mucus Few /HPF 01/02/18 01:55
[2018-01-03] MEDS: LEVAQUIN 500MG/100ML 500 MG/100 ML BAG IV SCH (10:41)
[2018-01-03] MEDS: PROTONIX IV SCH (10:41)
[2018-01-03] MEDS: ZOFRAN IV PRN (10:41)
[2018-01-03] MEDS: HEPARIN SUB-Q SCH ×2 (14:43→21:46)
[2018-01-04] MEDS: DILAUDID IV PRN ×5 (03:39→20:09)
[2018-01-04] MEDS: FLAGYL 500 MG/100 ML 500 MG/100 ML BAG IV SCH ×3 (05:17→22:30)
[2018-01-04] MEDS: D5/0.45NS 1,000 ML IV SCH ×2 (05:17→17:06)
--- NOTE | 2018-01-04 07:48 | Progress Note ---
Assessment and Plan Pt status quo. feeling "about the same" Abd exam - status quo acute recurrent diverticulitis with micro perforation stable may have ice chips and po meds otherwise NPO may consider TPN if pain persists beyond the next 48 hrs. f/u CT next wk Selected Entries 01/03/18 01/03/18 01/03/18 19:05 22:00 22:53 Temperature 97.2 F L Pulse Rate [ 72 Left Radial] Respiratory 20 Rate Blood Pressure 105/63 Objective Vital Signs - 12hr 01/03/18 01/03/18 22:00 22:53 Pulse Rate [ 72 Left Radial] Respiratory 20 20 Rate - Labs 01/03/18 05:30 01/03/18 05:30
[2018-01-04] MEDS: LEVAQUIN 500MG/100ML 500 MG/100 ML BAG IV SCH (09:38)
[2018-01-04] MEDS: HEPARIN SUB-Q SCH ×2 (09:39→22:31)
[2018-01-04] MEDS: PROTONIX IV SCH (11:43)
--- NOTE | 2018-01-04 13:08 | Query- Peritonitis ---
Deaandres Tam Date:__01/04/2018 Corporate Meeting Planner/CDS:__Zulma Phone#:__[phone] Exercise your independent professional judgment when responding to query. Questions asked do not imply a particular answer is desired or expected. We greatly appreciate your clarification on this issue. Clinical Documentation States: 57 Year old male was admitted on 01/02/2018 with severe right lower quadrant non radiating pains, achy, throbbing and non-radiating. The Hospitalist (Dr. Hirsch) progress note on 01/03/[address] "CT abd/pelvis with iv contrast IMPRESSION: Acute sigmoid diverticulitis. Trace free peritoneal air is identified but no evidence for abscess at this time. Bilateral renal cysts. Right renal calculus, nonobstructing. -Sepsis, poa as evident by heart rate 98, wbc 13.7 with diverticulitits: treat with ivf, iv abx -Acute Sigmoid Diverticulitis with microperfortation: bowel rest, iv abx, General surgery following, pain control with iv narcotics Please clarify: [ x] Localized peritonitis [ ] Peritoneal inflammation [ ] Generalized peritonitis [ ] Peritoneal infection [ ] Retroperitoneal infection [ ] Peritoneal irritation [ ] Retroperitoneal inflammation [ ] Omentitis [ ] Other: [ ] Comment/Explanation: Present on Admission: [x ] Yes (Y) [ ] Clinically undeterminable (W) [ ] No (N) Please also document response in your Progress Notes and/or Discharge Summary and indicate if the condition was present on admission. GEORGE
--- NOTE | 2018-01-04 15:55 | Progress Note ---
Assessment and Plan Assessment and plan: Patient is a 57 yo man with a history of hypertension, tobacco dependency, insomnia, dyslipidemia and recurrent diverticulitis who presents to the ED with severe right lower quadrant non radiating pains, achy, throbbing and non- radiating that started on Sunday as intermittent pains, now constant and severe without aggravating or relieving factors. He denies n/v/fevers/chills/cough/cp/ sob. The abd pains is similar to prior attacks; his last attack was about 1 year ago. He usually is treated with 2 iv abx for couple of days then discharge. He is followed closely by GI, Dr. Olmstead. CT abd/pelvis with iv contrast IMPRESSION: Acute sigmoid diverticulitis. Trace free peritoneal air is identified but no evidence for abscess at this time. Bilateral renal cysts. Right renal calculus, nonobstructing. -Sepsis, poa as evident by heart rate 98, wbc 13.7 with diverticulitits: treat with ivf, iv abx -Acute Sigmoid Diverticulitis with microperfortation: bowel rest, iv abx, General surgery following, pain control with iv narcotics -Hypertension: hold oral antihypertensive, use iv labetalol prn -Tobacco dependency: counseled on stopping -Insomnia: hold oral ambien, use prn iv ativan Dvt/gi ppx reviewed continue npo, ivf, iv abx may have ice chips and PO meds, nothing else per oral History Interval history: still c/o lower abdominal pain, up to 8/10 no fever, no nausea, no cp, no sob, Hospitalist Physical - Constitutional Vitals: Temp Pulse Resp BP Pulse Ox 98.6 F 67 20 111/64 94 01/04/18 14:41 01/04/18 14:41 01/04/18 14:41 01/04/18 14:41 01/04/18 14:41 General appearance: Present: no acute distress - EENT Eyes: Present: PERRL ENT: hearing intact - Neck Neck: Present: supple - Respiratory Respiratory effort: normal Respiratory: bilateral: CTA - Cardiovascular Rhythm: regular Heart Sounds: Present: S1 & S2 - Extremities Extremities: no ischemia Peripheral Pulses: within normal limits - Abdominal General gastrointestinal: soft, tender (lower abdomen) - Integumentary Integumentary: Present: clear, warm, dry - Psychiatric Psychiatric: appropriate mood/affect, intact judgment & insight - Neurologic Neurologic: CNII-XII intact, moves all extremities Results - Labs CBC & Chem 7: 01/05/18 07:50 01/05/18 07:50 Labs: Laboratory Last Values WBC 9.9 K/mm3 (4.5-11.0) 01/03/18 05:30 RBC 4.18 M/mm3 (3.65-5.03) 01/03/18 05:30 Hgb 13.8 gm/dl (11.8-15.2) 01/03/18 05:30 Hct 40.4 % (35.5-45.6) D 01/03/18 05:30 MCV 97 fl (84-94) H 01/03/18 05:30 MCH 33 pg (28-32) H 01/03/18 05:30 MCHC 34 % (32-34) 01/03/18 05:30 RDW 14.4 % (13.2-15.2) 01/03/18 05:30 Plt Count 137 K/mm3 (140-440) L 01/03/18 05:30 Lymph % (Auto) 16.2 % (13.4-35.0) 01/03/18 05:30 [place] % (Auto) 7.2 % (0.0-7.3) 01/03/18 05:30 Eos % (Auto) 0.7 % (0.0-4.3) 01/03/18 05:30 Baso % (Auto) 0.2 % (0.0-1.8) 01/03/18 05:30 Lymph # 1.6 K/mm3 (1.2-5.4) 01/03/18 05:30 [place] # 0.7 K/mm3 (0.0-0.8) 01/03/18 05:30 Eos # 0.1 K/mm3 (0.0-0.4) 01/03/18 05:30 Baso # 0.0 K/mm3 (0.0-0.1) 01/03/18 05:30 Seg Neutrophils % 75.7 % (40.0-70.0) H 01/03/18 05:30 Seg Neutrophils # 7.5 K/mm3 (1.8-7.7) 01/03/18 05:30 Sodium 140 mmol/L (137-145) 01/03/18 05:30 Potassium 3.7 mmol/L (3.6-5.0) D 01/03/18 05:30 Chloride 99.9 mmol/L (98-107) 01/03/18 05:30 Carbon Dioxide 28 mmol/L (22-30) 01/03/18 05:30 Anion Gap 16 mmol/L 01/03/18 05:30 BUN 11 mg/dL (9-20) 01/03/18 05:30 Creatinine 0.8 mg/dL (0.8-1.5) 01/03/18 05:30 Estimated GFR > 60 ml/min 01/03/18 05:30 BUN/Creatinine Ratio 14 % 01/03/18 05:30 Glucose 96 mg/dL (75-100) 01/03/18 05:30 Calcium 8.7 mg/dL (8.4-10.2) 01/03/18 05:30 Total Bilirubin 0.80 mg/dL (0.1-1.2) 01/02/18 01:04 AST 13 units/L (5-40) 01/02/18 01:04 ALT 12 units/L (7-56) 01/02/18 01:04 Alkaline Phosphatase 83 units/L (35-129) 01/02/18 01:04 Total Protein 6.6 g/dL (6.3-8.2) 01/02/18 01:04 Albumin 4.6 g/dL (3.9-5) 01/02/18 01:04 Albumin/Globulin Ratio 2.3 % 01/02/18 01:04 Urine Color Yellow (Yellow) 01/02/18 01:55 Urine Turbidity Clear (Clear) 01/02/18 01:55 Urine pH 5.0 (5.0-7.0) 01/02/18 01:55 Ur Specific [place] 1.014 (1.003-1.030) 01/02/18 01:55 Urine Protein <15 mg/dl mg/dL (Negative) 01/02/18 01:55 Urine Glucose (UA) Neg mg/dL (Negative) 01/02/18 01:55 Urine Ketones 20 mg/dL (Negative) 01/02/18 01:55 Urine Blood Sm (Negative) 01/02/18 01:55 Urine Nitrite Neg (Negative) 01/02/18 01:55 Urine Bilirubin Neg (Negative) 01/02/18 01:55 Urine Urobilinogen < 2.0 mg/dL (<2.0) 01/02/18 01:55 Ur Leukocyte Esterase Tr (Negative) 01/02/18 01:55 Urine WBC (Auto) 1.0 /HPF (0.0-6.0) 01/02/18 01:55 Urine RBC (Auto) 2.0 /HPF (0.0-6.0) 01/02/18 01:55 U Epithel Cells (Auto) < 1.0 /HPF (0-13.0) 01/02/18 01:55 Urine Mucus Few /HPF 01/02/18 01:55
[2018-01-04] MEDS: ATIVAN IV PRN (22:31)
[2018-01-05] MEDS: D5/0.45NS 1,000 ML IV SCH ×2 (05:53→17:01)
[2018-01-05] MEDS: FLAGYL 500 MG/100 ML 500 MG/100 ML BAG IV SCH ×3 (05:54→21:03)
[2018-01-05] MEDS: DILAUDID IV PRN ×4 (06:18→22:21)
[2018-01-05 08:32] LABS: BUN/Creatinine Ratio 10; Blood Urea Nitrogen 6 mg/dL (9-20); Calcium 8.5 mg/dL (8.4-10.2); Hemolysis Index 3
[2018-01-05 08:34] LABS: Hematocrit 41.2 % (35.5-45.6); Hemoglobin 14.1 gm/dl (11.8-15.2); Mean Corpuscular HGB Conc 34 % (32-34); Mean Corpuscular Hemoglobin 33 pg (28-32); Mean Corpuscular Volume 96 fl (84-94); Platelet Count 159 K/mm3 (140-440); Red Blood Count 4.31 M/mm3 (3.65-5.03); Red Cell Distribution Width 14.3 % (13.2-15.2)
[2018-01-05] MEDS ORDERED: KCL 40 MEQ in NACL 0.45% 500 ML IV SCH (10:00)
[2018-01-05] MEDS: LEVAQUIN 500MG/100ML 500 MG/100 ML BAG IV SCH (10:16)
[2018-01-05] MEDS: HEPARIN SUB-Q SCH ×2 (10:19→21:02)
[2018-01-05] MEDS: PROTONIX PO SCH (10:19)
--- NOTE | 2018-01-05 14:36 | Progress Note ---
Assessment and Plan Assessment and plan: Patient is a 57 yo man with a history of hypertension, tobacco dependency, insomnia, dyslipidemia and recurrent diverticulitis who presents to the ED with severe right lower quadrant non radiating pains, achy, throbbing and non- radiating that started on Sunday as intermittent pains, now constant and severe without aggravating or relieving factors. He denies n/v/fevers/chills/cough/cp/ sob. The abd pains is similar to prior attacks; his last attack was about 1 year ago. He usually is treated with 2 iv abx for couple of days then discharge. He is followed closely by GI, Dr. Olmstead. CT abd/pelvis with iv contrast IMPRESSION: Acute sigmoid diverticulitis. Trace free peritoneal air is identified but no evidence for abscess at this time. Bilateral renal cysts. Right renal calculus, nonobstructing. -Sepsis, poa as evident by heart rate 98, wbc 13.7 with diverticulitits: treat with ivf, iv abx -Acute Sigmoid Diverticulitis with microperfortation: bowel rest, iv abx, General surgery following, pain control with iv narcotics -Hypertension: hold oral antihypertensive, use iv labetalol prn -Tobacco dependency: counseled on stopping -Insomnia: hold oral ambien, use prn iv ativan Dvt/gi ppx reviewed continue npo, ivf, iv abx may have ice chips and PO meds, nothing else per oral History Interval history: still c/o lower abdominal pain, up to 6/10, improved no fever, no nausea, no cp, no sob, Hospitalist Physical - Physical exam Narrative exam: General appearance: Present: no acute distress - EENT Eyes: Present: PERRL ENT: hearing intact - Neck Neck: Present: supple - Respiratory Respiratory effort: normal Respiratory: bilateral: CTA - Cardiovascular Rhythm: regular Heart Sounds: Present: S1 & S2 - Extremities Extremities: no ischemia Peripheral Pulses: within normal limits - Abdominal General gastrointestinal: soft, tender (lower abdomen) - Integumentary Integumentary: Present: clear, warm, dry - Psychiatric Psychiatric: appropriate mood/affect, intact judgment & insight - Neurologic Neurologic: CNII-XII intact, moves all extremities - Constitutional Vitals: Temp Pulse Resp BP Pulse Ox 98.6 F 67 22 111/56 93 01/05/18 07:32 01/05/18 07:32 01/05/18 12:06 01/05/18 07:32 01/05/18 07:32 Results - Labs CBC & Chem 7: 01/05/18 07:50 01/05/18 07:50 Labs: Laboratory Last Values WBC 4.9 K/mm3 (4.5-11.0) 01/05/18 07:50 RBC 4.31 M/mm3 (3.65-5.03) 01/05/18 07:50 Hgb 14.1 gm/dl (11.8-15.2) 01/05/18 07:50 Hct 41.2 % (35.5-45.6) 01/05/18 07:50 MCV 96 fl (84-94) H 01/05/18 07:50 MCH 33 pg (28-32) H 01/05/18 07:50 MCHC 34 % (32-34) 01/05/18 07:50 RDW 14.3 % (13.2-15.2) 01/05/18 07:50 Plt Count 159 K/mm3 (140-440) 01/05/18 07:50 Lymph % (Auto) 16.2 % (13.4-35.0) 01/03/18 05:30 [place] % (Auto) 7.2 % (0.0-7.3) 01/03/18 05:30 Eos % (Auto) 0.7 % (0.0-4.3) 01/03/18 05:30 Baso % (Auto) 0.2 % (0.0-1.8) 01/03/18 05:30 Lymph # 1.6 K/mm3 (1.2-5.4) 01/03/18 05:30 [place] # 0.7 K/mm3 (0.0-0.8) 01/03/18 05:30 Eos # 0.1 K/mm3 (0.0-0.4) 01/03/18 05:30 Baso # 0.0 K/mm3 (0.0-0.1) 01/03/18 05:30 Seg Neutrophils % 75.7 % (40.0-70.0) H 01/03/18 05:30 Seg Neutrophils # 7.5 K/mm3 (1.8-7.7) 01/03/18 05:30 Sodium 136 mmol/L (137-145) L 01/05/18 07:50 Potassium 3.3 mmol/L (3.6-5.0) L 01/05/18 07:50 Chloride 102.7 mmol/L (98-107) 01/05/18 07:50 Carbon Dioxide 25 mmol/L (22-30) 01/05/18 07:50 Anion Gap 12 mmol/L 01/05/18 07:50 BUN 6 mg/dL (9-20) L 01/05/18 07:50 Creatinine 0.6 mg/dL (0.8-1.5) L 01/05/18 07:50 Estimated GFR > 60 ml/min 01/05/18 07:50 BUN/Creatinine Ratio 10 % 01/05/18 07:50 Glucose 116 mg/dL (75-100) H 01/05/18 07:50 Calcium 8.5 mg/dL (8.4-10.2) 01/05/18 07:50 Total Bilirubin 0.80 mg/dL (0.1-1.2) 01/02/18 01:04 AST 13 units/L (5-40) 01/02/18 01:04 ALT 12 units/L (7-56) 01/02/18 01:04 Alkaline Phosphatase 83 units/L (35-129) 01/02/18 01:04 Total Protein 6.6 g/dL (6.3-8.2) 01/02/18 01:04 Albumin 4.6 g/dL (3.9-5) 01/02/18 01:04 Albumin/Globulin Ratio 2.3 % 01/02/18 01:04 Urine Color Yellow (Yellow) 01/02/18 01:55 Urine Turbidity Clear (Clear) 01/02/18 01:55 Urine pH 5.0 (5.0-7.0) 01/02/18 01:55 Ur Specific [place] 1.014 (1.003-1.030) 01/02/18 01:55 Urine Protein <15 mg/dl mg/dL (Negative) 01/02/18 01:55 Urine Glucose (UA) Neg mg/dL (Negative) 01/02/18 01:55 Urine Ketones 20 mg/dL (Negative) 01/02/18 01:55 Urine Blood Sm (Negative) 01/02/18 01:55 Urine Nitrite Neg (Negative) 01/02/18 01:55 Urine Bilirubin Neg (Negative) 01/02/18 01:55 Urine Urobilinogen < 2.0 mg/dL (<2.0) 01/02/18 01:55 Ur Leukocyte Esterase Tr (Negative) 01/02/18 01:55 Urine WBC (Auto) 1.0 /HPF (0.0-6.0) 01/02/18 01:55 Urine RBC (Auto) 2.0 /HPF (0.0-6.0) 01/02/18 01:55 U Epithel Cells (Auto) < 1.0 /HPF (0-13.0) 01/02/18 01:55 Urine Mucus Few /HPF 01/02/18 01:55
[2018-01-06] MEDS: D5/0.45NS 1,000 ML IV SCH ×3 (01:05→17:46)
[2018-01-06] MEDS: FLAGYL 500 MG/100 ML 500 MG/100 ML BAG IV SCH (05:42)
[2018-01-06] MEDS: HEPARIN SUB-Q SCH ×2 (09:53→22:48)
[2018-01-06] MEDS: LEVAQUIN PO SCH (09:54)
[2018-01-06] MEDS: PROTONIX PO SCH (09:54)
[2018-01-06] MEDS: FLAGYL PO SCH ×2 (14:27→22:47)
[2018-01-06] MEDS: DILAUDID IV PRN ×2 (14:27→18:41)
[2018-01-06] MEDS: ZOFRAN IV PRN (14:30)
--- NOTE | 2018-01-06 16:34 | Progress Note ---
Assessment and Plan Assessment and plan: Patient is a 57 yo man with a history of hypertension, tobacco dependency, insomnia, dyslipidemia and recurrent diverticulitis who presents to the ED with severe right lower quadrant non radiating pains, achy, throbbing and non- radiating that started on Sunday as intermittent pains, now constant and severe without aggravating or relieving factors. He denies n/v/fevers/chills/cough/cp/ sob. The abd pains is similar to prior attacks; his last attack was about 1 year ago. He usually is treated with 2 iv abx for couple of days then discharge. He is followed closely by GI, Dr. Olmstead. CT abd/pelvis with iv contrast IMPRESSION: Acute sigmoid diverticulitis. Trace free peritoneal air is identified but no evidence for abscess at this time. Bilateral renal cysts. Right renal calculus, nonobstructing. -Sepsis, poa as evident by heart rate 98, wbc 13.7 with diverticulitits: treat with ivf, iv abx -Acute Sigmoid Diverticulitis with microperfortation: bowel rest, iv abx, General surgery following, pain control with iv narcotics -Hypertension: hold oral antihypertensive, use iv labetalol prn -Tobacco dependency: counseled on stopping -Insomnia: hold oral ambien, use prn iv ativan -hypokalemia; repleted Dvt/gi ppx reviewed will try on a popsicle and awaiting gen surgery to see the patient this weekend -if pain worsens, will make NPO again with ice chips only History Interval history: still c/o lower abdominal pain, up to 4/10, improved; localized to RLQ no fever, no nausea, no cp, no sob, Hospitalist Physical - Physical exam Narrative exam: General appearance: Present: no acute distress - EENT Eyes: Present: PERRL ENT: hearing intact - Neck Neck: Present: supple - Respiratory Respiratory effort: normal Respiratory: bilateral: CTA - Cardiovascular Rhythm: regular Heart Sounds: Present: S1 & S2 - Extremities Extremities: no ischemia Peripheral Pulses: within normal limits - Abdominal General gastrointestinal: soft, tender (lower abdomen) - Integumentary Integumentary: Present: clear, warm, dry - Psychiatric Psychiatric: appropriate mood/affect, intact judgment & insight - Neurologic Neurologic: CNII-XII intact, moves all extremities - Constitutional Vitals: Temp Pulse Resp BP Pulse Ox 98.0 F 59 L 16 125/77 97 01/06/18 14:56 01/06/18 14:56 01/06/18 14:56 01/06/18 14:56 01/06/18 14:56 Results - Labs CBC & Chem 7: 01/05/18 07:50 01/05/18 07:50 Labs: Laboratory Last Values WBC 4.9 K/mm3 (4.5-11.0) 01/05/18 07:50 RBC 4.31 M/mm3 (3.65-5.03) 01/05/18 07:50 Hgb 14.1 gm/dl (11.8-15.2) 01/05/18 07:50 Hct 41.2 % (35.5-45.6) 01/05/18 07:50 MCV 96 fl (84-94) H 01/05/18 07:50 MCH 33 pg (28-32) H 01/05/18 07:50 MCHC 34 % (32-34) 01/05/18 07:50 RDW 14.3 % (13.2-15.2) 01/05/18 07:50 Plt Count 159 K/mm3 (140-440) 01/05/18 07:50 Lymph % (Auto) 16.2 % (13.4-35.0) 01/03/18 05:30 [place] % (Auto) 7.2 % (0.0-7.3) 01/03/18 05:30 Eos % (Auto) 0.7 % (0.0-4.3) 01/03/18 05:30 Baso % (Auto) 0.2 % (0.0-1.8) 01/03/18 05:30 Lymph # 1.6 K/mm3 (1.2-5.4) 01/03/18 05:30 [place] # 0.7 K/mm3 (0.0-0.8) 01/03/18 05:30 Eos # 0.1 K/mm3 (0.0-0.4) 01/03/18 05:30 Baso # 0.0 K/mm3 (0.0-0.1) 01/03/18 05:30 Seg Neutrophils % 75.7 % (40.0-70.0) H 01/03/18 05:30 Seg Neutrophils # 7.5 K/mm3 (1.8-7.7) 01/03/18 05:30 Sodium 136 mmol/L (137-145) L 01/05/18 07:50 Potassium 3.3 mmol/L (3.6-5.0) L 01/05/18 07:50 Chloride 102.7 mmol/L (98-107) 01/05/18 07:50 Carbon Dioxide 25 mmol/L (22-30) 01/05/18 07:50 Anion Gap 12 mmol/L 01/05/18 07:50 BUN 6 mg/dL (9-20) L 01/05/18 07:50 Creatinine 0.6 mg/dL (0.8-1.5) L 01/05/18 07:50 Estimated GFR > 60 ml/min 01/05/18 07:50 BUN/Creatinine Ratio 10 % 01/05/18 07:50 Glucose 116 mg/dL (75-100) H 01/05/18 07:50 Calcium 8.5 mg/dL (8.4-10.2) 01/05/18 07:50 Total Bilirubin 0.80 mg/dL (0.1-1.2) 01/02/18 01:04 AST 13 units/L (5-40) 01/02/18 01:04 ALT 12 units/L (7-56) 01/02/18 01:04 Alkaline Phosphatase 83 units/L (35-129) 01/02/18 01:04 Total Protein 6.6 g/dL (6.3-8.2) 01/02/18 01:04 Albumin 4.6 g/dL (3.9-5) 01/02/18 01:04 Albumin/Globulin Ratio 2.3 % 01/02/18 01:04 Urine Color Yellow (Yellow) 01/02/18 01:55 Urine Turbidity Clear (Clear) 01/02/18 01:55 Urine pH 5.0 (5.0-7.0) 01/02/18 01:55 Ur Specific [place] 1.014 (1.003-1.030) 01/02/18 01:55 Urine Protein <15 mg/dl mg/dL (Negative) 01/02/18 01:55 Urine Glucose (UA) Neg mg/dL (Negative) 01/02/18 01:55 Urine Ketones 20 mg/dL (Negative) 01/02/18 01:55 Urine Blood Sm (Negative) 01/02/18 01:55 Urine Nitrite Neg (Negative) 01/02/18 01:55 Urine Bilirubin Neg (Negative) 01/02/18 01:55 Urine Urobilinogen < 2.0 mg/dL (<2.0) 01/02/18 01:55 Ur Leukocyte Esterase Tr (Negative) 01/02/18 01:55 Urine WBC (Auto) 1.0 /HPF (0.0-6.0) 01/02/18 01:55 Urine RBC (Auto) 2.0 /HPF (0.0-6.0) 01/02/18 01:55 U Epithel Cells (Auto) < 1.0 /HPF (0-13.0) 01/02/18 01:55 Urine Mucus Few /HPF 01/02/18 01:55
--- NOTE | 2018-01-06 22:07 | Progress Note ---
Assessment and Plan Pt feeling better. less pain. requiring less narcotics. Abd soft. pain now completely localized to RLQ but less. no further muscle guarding. +BS clinically improving. continue NPO f/u CT abd on tu Selected Entries 01/06/18 14:56 Temperature 98.0 F Pulse Rate 59 L Respiratory 16 Rate Blood Pressure 125/77 Laboratory Tests 01/05/18 07:50 WBC 4.9 Hgb 14.1 Hct 41.2 Objective Vital Signs - 12hr 01/06/18 14:56 Temperature 98.0 F Pulse Rate 59 L Respiratory 16 Rate Blood Pressure 125/77 O2 Sat by Pulse 97 Oximetry - Labs 01/05/18 07:50 01/05/18 07:50
[2018-01-06] MEDS: ATIVAN IV PRN (22:47)
[2018-01-07] MEDS: D5/0.45NS 1,000 ML IV SCH ×4 (01:05→23:52)
[2018-01-07] MEDS: FLAGYL PO SCH ×3 (06:04→23:39)
[2018-01-07 06:33] LABS: Basophils % (Auto) 0.6 % (0.0-1.8); Eosinophils # (Auto) 0.2 K/mm3 (0.0-0.4); Eosinophils % (Auto) 3.4 % (0.0-4.3); Hematocrit 40.6 % (35.5-45.6); Hemoglobin 13.9 gm/dl (11.8-15.2); Lymphocytes # (Auto) 1.6 K/mm3 (1.2-5.4); Lymphocytes % (Auto) 29.5 % (13.4-35.0); Mean Corpuscular HGB Conc 34 % (32-34); Mean Corpuscular Hemoglobin 33 pg (28-32); Mean Corpuscular Volume 96 fl (84-94); Monocytes # (Auto) 0.6 K/mm3 (0.0-0.8); Monocytes % (Auto) 11.3 % (0.0-7.3); Platelet Count 173 K/mm3 (140-440); Red Blood Count 4.23 M/mm3 (3.65-5.03); Red Cell Distribution Width 13.9 % (13.2-15.2)
[2018-01-07 06:56] LABS: BUN/Creatinine Ratio 9; Blood Urea Nitrogen 6 mg/dL (9-20); Calcium 8.3 mg/dL (8.4-10.2); Hemolysis Index 2
[2018-01-07] MEDS: PROTONIX PO SCH (09:42)
[2018-01-07] MEDS: LEVAQUIN PO SCH (09:42)
[2018-01-07] MEDS: HEPARIN SUB-Q SCH ×2 (09:42→23:39)
--- NOTE | 2018-01-07 14:02 | Progress Note ---
Assessment and Plan Pt feeling well without compl. Abd soft non tender at present. acute recurrent diverticulitis pain resolved for f/u CT in am continue present care probable cl liq diet in am pending f/u CT findings Objective Vital Signs - 12hr 01/07/18 07:35 Temperature 97.7 F Pulse Rate 65 Respiratory 18 Rate Blood Pressure 112/74 O2 Sat by Pulse 93 Oximetry - Labs 01/07/18 04:55 01/07/18 04:55 Diabetes panel 01/07/18 Range/Units 04:55 Sodium 142 (137-145) mmol/L Potassium 3.5 L (3.6-5.0) mmol/L Chloride 101.9 (98-107) mmol/L Carbon Dioxide 27 (22-30) mmol/L BUN 6 L (9-20) mg/dL Creatinine 0.7 L (0.8-1.5) mg/dL Glucose 106 H (75-100) mg/dL Calcium 8.3 L (8.4-10.2) mg/dL Calcium panel 01/07/18 Range/Units 04:55 Calcium 8.3 L (8.4-10.2) mg/dL Phosphorus 3.00 (2.5-4.5) mg/dL Pituitary panel 01/07/18 Range/Units 04:55 Sodium 142 (137-145) mmol/L Potassium 3.5 L (3.6-5.0) mmol/L Chloride 101.9 (98-107) mmol/L Carbon Dioxide 27 (22-30) mmol/L BUN 6 L (9-20) mg/dL Creatinine 0.7 L (0.8-1.5) mg/dL Glucose 106 H (75-100) mg/dL Calcium 8.3 L (8.4-10.2) mg/dL Adrenal panel 01/07/18 Range/Units 04:55 Sodium 142 (137-145) mmol/L Potassium 3.5 L (3.6-5.0) mmol/L Chloride 101.9 (98-107) mmol/L Carbon Dioxide 27 (22-30) mmol/L BUN 6 L (9-20) mg/dL Creatinine 0.7 L (0.8-1.5) mg/dL Glucose 106 H (75-100) mg/dL Calcium 8.3 L (8.4-10.2) mg/dL
--- NOTE | 2018-01-07 14:52 | Progress Note ---
Assessment and Plan Assessment and Plan Assessment and plan: Patient is a 57 yo man with a history of hypertension, tobacco dependency, insomnia, dyslipidemia and recurrent diverticulitis who presents to the ED with severe right lower quadrant non radiating pains, achy, throbbing and non- radiating that started on Sunday as intermittent pains, now constant and severe without aggravating or relieving factors. He denies n/v/fevers/chills/cough/cp/ sob. The abd pains is similar to prior attacks; his last attack was about 1 year ago. He usually is treated with 2 iv abx for couple of days then discharge. He is followed closely by GI, Dr. Olmstead. CT abd/pelvis with iv contrast IMPRESSION: Acute sigmoid diverticulitis. Trace free peritoneal air is identified but no evidence for abscess at this time. Bilateral renal cysts. Right renal calculus, nonobstructing. -Sepsis, poa as evident by heart rate 98, wbc 13.7 with diverticulitits: treat with ivf, iv abx -Acute Sigmoid Diverticulitis with microperfortation: bowel rest, iv abx, General surgery following, pain control with iv narcotics Rpt CT scan -Hypertension: hold oral antihypertensive, use iv labetalol prn -Tobacco dependency: counseled on stopping -Insomnia: hold oral ambien, use prn iv ativan -hypokalemia; repleted Dvt/gi ppx reviewed Subjective Date of service: 01/07/18 Principal diagnosis: Sigmoid diverticulitis with microperforation Interval history: Doing well Objective - Constitutional Vitals: Vital Signs - 12hr 01/07/18 07:35 Temperature 97.7 F Pulse Rate 65 Respiratory 18 Rate Blood Pressure 112/74 O2 Sat by Pulse 93 Oximetry General appearance: Present: no acute distress, well-nourished - EENT Eyes: PERRL, EOM intact ENT: hearing intact, clear oral mucosa Ears: bilateral: normal - Neck Neck: supple, normal ROM - Respiratory Respiratory effort: normal Respiratory: bilateral: CTA - Breasts Breasts: normal - Cardiovascular Rhythm: regular Heart Sounds: Present: S1 & S2. Absent: gallop, rub Extremities: pulses intact, No edema, normal color, Full ROM - Gastrointestinal General gastrointestinal: Present: soft, non-tender, non-distended, normal bowel sounds - Genitourinary Male genitourinary: normal - Integumentary Integumentary: clear, warm, dry - Musculoskeletal Musculoskeletal: 1, strength equal bilaterally - Neurologic Neurologic: moves all extremities - Psychiatric Psychiatric: memory intact, appropriate mood/affect, intact judgment & insight - Labs CBC & Chem 7: 01/08/18 05:40 01/08/18 05:40 Labs: Abnormal lab results 01/07/18 01/07/18 Range/Units 04:55 04:55 MCV 96 H (84-94) fl MCH 33 H (28-32) pg [place] % (Auto) 11.3 H (0.0-7.3) % Potassium 3.5 L (3.6-5.0) mmol/L BUN 6 L (9-20) mg/dL Creatinine 0.7 L (0.8-1.5) mg/dL Glucose 106 H (75-100) mg/dL Calcium 8.3 L (8.4-10.2) mg/dL
[2018-01-07] MEDS: ATIVAN IV PRN (23:40)
[2018-01-08] MEDS: FLAGYL PO SCH ×3 (06:00→22:10)
[2018-01-08 06:16] LABS: Basophils % (Auto) 0.5 % (0.0-1.8); Eosinophils # (Auto) 0.1 K/mm3 (0.0-0.4); Eosinophils % (Auto) 2.7 % (0.0-4.3); Hematocrit 42.3 % (35.5-45.6); Hemoglobin 14.6 gm/dl (11.8-15.2); Lymphocytes # (Auto) 1.6 K/mm3 (1.2-5.4); Lymphocytes % (Auto) 32.1 % (13.4-35.0); Mean Corpuscular HGB Conc 34 % (32-34); Mean Corpuscular Hemoglobin 33 pg (28-32); Mean Corpuscular Volume 95 fl (84-94); Monocytes # (Auto) 0.4 K/mm3 (0.0-0.8); Monocytes % (Auto) 8.9 % (0.0-7.3); Platelet Count 186 K/mm3 (140-440); Red Blood Count 4.44 M/mm3 (3.65-5.03)
[2018-01-08 06:38] LABS: BUN/Creatinine Ratio 7; Blood Urea Nitrogen 4 mg/dL (9-20); Calcium 8.7 mg/dL (8.4-10.2); Hemolysis Index 4
[2018-01-08] MEDS: D5/0.45NS 1,000 ML IV SCH (07:40)
--- NOTE | 2018-01-08 09:05 | Cat Scan Report ---
CT ABDOMEN PELVIS WITHOUT CONTRAST: HISTORY: Followup diverticulitis with microperforation. COMPARISON: 01/02/18. TECHNIQUE: Helical CT in 1.25mm intervals without IV contrast. Sagittal and coronal reconstructions. FINDINGS: Sigmoid diverticulitis inflammation has nearly resolved since 01/02/18. Trace free air along the anterior abdominal wall has resolved. There is trace free air remaining in the right lower quadrant mesentery although it has decreased by 75%. There is no evidence for new inflammation or abscess. The remainder of the examination is unchanged since 01/02/18. IMPRESSION: Near resolution of the sigmoid diverticulitis and microperforation since 01/02/18.
[2018-01-08] MEDS: HEPARIN SUB-Q SCH ×2 (10:23→22:10)
[2018-01-08] MEDS: LEVAQUIN PO SCH (10:23)
[2018-01-08] MEDS: PROTONIX PO SCH (10:23)
--- NOTE | 2018-01-08 13:12 | Progress Note ---
Assessment and Plan Pt feeling well without compl. Abd soft, non tender f/u CT - almost complete resolution of diverticulitis. once again instructed pt that he should proceed with semi-elective sigmoid colectomy in next 6-8 wks once inflammation completely subsides. this way we can proceed with formal bowel prep and primary anastomosis. Pt still appears reluctant. will start cl liq diet Selected Entries 01/07/18 01/08/18 07:35 07:52 Temperature 97.7 F 98.2 F Pulse Rate 65 67 Respiratory 18 20 Rate Blood Pressure 112/74 103/66 Laboratory Tests 01/07/18 01/07/18 01/08/18 04:55 04:55 05:40 WBC 5.4 4.9 Hgb 13.9 14.6 Hct 40.6 42.3 Potassium 3.5 L Objective Vital Signs - 12hr 01/08/18 07:52 Temperature 98.2 F Pulse Rate 67 Respiratory 20 Rate Blood Pressure 103/66 O2 Sat by Pulse 96 Oximetry - Labs 01/08/18 05:40 01/08/18 05:40 Diabetes panel 01/08/18 Range/Units 05:40 Sodium 143 (137-145) mmol/L Potassium 3.3 L (3.6-5.0) mmol/L Chloride 105.8 (98-107) mmol/L Carbon Dioxide 25 (22-30) mmol/L BUN 4 L (9-20) mg/dL Creatinine 0.6 L (0.8-1.5) mg/dL Glucose 108 H (75-100) mg/dL Calcium 8.7 (8.4-10.2) mg/dL Calcium panel 01/08/18 Range/Units 05:40 Calcium 8.7 (8.4-10.2) mg/dL Pituitary panel 01/08/18 Range/Units 05:40 Sodium 143 (137-145) mmol/L Potassium 3.3 L (3.6-5.0) mmol/L Chloride 105.8 (98-107) mmol/L Carbon Dioxide 25 (22-30) mmol/L BUN 4 L (9-20) mg/dL Creatinine 0.6 L (0.8-1.5) mg/dL Glucose 108 H (75-100) mg/dL Calcium 8.7 (8.4-10.2) mg/dL Adrenal panel 04/24/18 Range/Units 05:40 Sodium 143 (137-145) mmol/L Potassium 3.3 L (3.6-5.0) mmol/L Chloride 105.8 (98-107) mmol/L Carbon Dioxide 25 (22-30) mmol/L BUN 4 L (9-20) mg/dL Creatinine 0.6 L (0.8-1.5) mg/dL Glucose 108 H (75-100) mg/dL Calcium 8.7 (8.4-10.2) mg/dL
--- NOTE | 2018-01-08 14:37 | Progress Note ---
Assessment and Plan Assessment and Plan Patient is a 57 yo man with a history of hypertension, tobacco dependency, insomnia, dyslipidemia and recurrent diverticulitis who presents to the ED with severe right lower quadrant non radiating pains, achy, throbbing and non- radiating that started on Sunday as intermittent pains, now constant and severe without aggravating or relieving factors. He denies n/v/fevers/chills/cough/cp/ sob. The abd pains is similar to prior attacks; his last attack was about 1 year ago. He usually is treated with 2 iv abx for couple of days then discharge. He is followed closely by GI, Dr. Olmstead. CT abd/pelvis with iv contrast IMPRESSION: Acute sigmoid diverticulitis. Trace free peritoneal air is identified but no evidence for abscess at this time. Bilateral renal cysts. Right renal calculus, nonobstructing. -Sepsis, poa as evident by heart rate 98, wbc 13.7 with diverticulitits: treat with ivf, iv abx -Acute Sigmoid Diverticulitis with microperfortation: bowel rest, iv abx, General surgery following, pain control with iv narcotics-Improving Probale discharge tomorrow if surgery agrees Clear liquid diet -Hypertension: hold oral antihypertensive, use iv labetalol prn -Tobacco dependency: counseled on stopping -Insomnia: hold oral ambien, use prn iv ativan -hypokalemia; repleted Dvt/gi ppx reviewed Subjective Date of service: 01/08/18 Principal diagnosis: Sigmoid diverticulitis with microperoration Interval history: Doing well Objective - Constitutional Vitals: Vital Signs - 12hr 01/08/18 07:52 Temperature 98.2 F Pulse Rate 67 Respiratory 20 Rate Blood Pressure 103/66 O2 Sat by Pulse 96 Oximetry General appearance: Present: no acute distress, well-nourished - EENT Eyes: PERRL, EOM intact ENT: hearing intact, clear oral mucosa Ears: bilateral: normal - Neck Neck: supple, normal ROM - Respiratory Respiratory effort: normal Respiratory: bilateral: CTA - Breasts Breasts: normal - Cardiovascular Rhythm: regular Heart Sounds: Present: S1 & S2. Absent: gallop, rub Extremities: pulses intact, No edema, normal color, Full ROM - Gastrointestinal General gastrointestinal: Present: soft, non-tender, non-distended, normal bowel sounds - Genitourinary Male genitourinary: normal - Integumentary Integumentary: clear, warm, dry - Musculoskeletal Musculoskeletal: 1, strength equal bilaterally - Neurologic Neurologic: moves all extremities - Psychiatric Psychiatric: memory intact, appropriate mood/affect, intact judgment & insight - Labs CBC & Chem 7: 01/08/18 05:40 01/08/18 05:40 Labs: Abnormal lab results 01/08/18 01/08/18 Range/Units 05:40 05:40 MCV 95 H (84-94) fl MCH 33 H (28-32) pg [place] % (Auto) 8.9 H (0.0-7.3) % Potassium 3.3 L (3.6-5.0) mmol/L BUN 4 L (9-20) mg/dL Creatinine 0.6 L (0.8-1.5) mg/dL Glucose 108 H (75-100) mg/dL
[2018-01-08] MEDS: ATIVAN IV PRN (22:10)
[2018-01-09] MEDS: FLAGYL PO SCH ×2 (06:18→13:36)
[2018-01-09 08:19] VITALS: BP 116/64
[2018-01-09] MEDS: LEVAQUIN PO SCH (09:28)
[2018-01-09] MEDS: PROTONIX PO SCH (09:28)
[2018-01-09] MEDS: HEPARIN SUB-Q SCH (09:28)
[2018-01-09] MEDS ORDERED: POTASSIUM CHLORIDE FEEDTUBE ONE (11:34)
[2018-01-09] MEDS ORDERED: KCL 10MEQ/100ML 10 MEQ/100 ML BAG IV SCH (12:00)
--- NOTE | 2018-01-09 13:31 | Progress Note ---
Assessment and Plan Pt feeling well without compl. pablo cl liq diet. eager to go home Abd soft, non tender surgically stable advance to full liq diet. may d/c from surg perspective if diet pablo advance to solid high fiber diet at home in am continue po Levaquin & Flagyl x 5 days rto this Mon Selected Entries 01/08/18 01/09/18 21:10 07:44 Temperature 98.6 F Pulse Rate 68 Blood Pressure 116/64 Objective Vital Signs - 12hr 01/09/18 07:44 Pulse Rate 68 Respiratory 24 Rate Blood Pressure 116/64 O2 Sat by Pulse 92 Oximetry - Labs 01/08/18 05:40 01/08/18 05:40
--- NOTE | 2018-01-09 14:10 | Discharge Summary ---
Providers - Providers Date of Admission: 01/02/18 10:08 Date of discharge: 01/09/18 Attending physician: SARAVANAN OBANDO 01/02/18 10:06 Consult to Physician [CONS] Urgent Comment: DR DONOVAN NOTIFIED [id number] Consulting Provider: SAWYER DONOVAN Physician Instructions: Reason For Exam: diveritculitis with microperf Primary care physician: AARON RAY Hospitalization Condition: Stable Hospital course: Assessment and Plan Patient is a 57 yo man with a history of hypertension, tobacco dependency, insomnia, dyslipidemia and recurrent diverticulitis who presents to the ED with severe right lower quadrant non radiating pains, achy, throbbing and non- radiating that started on Sunday as intermittent pains, now constant and severe without aggravating or relieving factors. He denies n/v/fevers/chills/cough/cp/ sob. The abd pains is similar to prior attacks; his last attack was about 1 year ago. He usually is treated with 2 iv abx for couple of days then discharge. He is followed closely by GI, Dr. Olmstead. CT abd/pelvis with iv contrast IMPRESSION: Acute sigmoid diverticulitis. Trace free peritoneal air is identified but no evidence for abscess at this time. Bilateral renal cysts. Right renal calculus, nonobstructing. -Sepsis, poa as evident by heart rate 98, wbc 13.7 with diverticulitits: treat with ivf, iv abx -Acute Sigmoid Diverticulitis with microperfortation: Improved.5 more days of po Levaquin and Flagyl Discharge today Clear liquid diet and advance as tolerated -Hypertension: oral antihypertensives -Tobacco dependency: counseled on stopping -Insomnia: oral ambien, -hypokalemia; repleted Pt feeling well without compl. pablo cl liq diet. eager to go home Abd soft, non tender surgically stable advance to full liq diet. may d/c from surg perspective if diet pablo advance to solid high fiber diet at home in am continue po Levaquin & Flagyl x 5 days rto this Sun Disposition: - TO HOME OR SELFCARE Time spent for discharge: 33 min Core Measure Documentation - Palliative Care Palliative Care/ Comfort Measures: Not Applicable - Core Measures Any of the following diagnoses?: none Exam - Constitutional Vitals: Temp Pulse Resp BP Pulse Ox 98.6 F 68 24 116/64 92 01/08/18 21:10 01/09/18 07:44 01/09/18 07:44 01/09/18 07:44 01/09/18 07:44 General appearance: Present: no acute distress, well-nourished - EENT Eyes: Present: PERRL ENT: hearing intact, clear oral mucosa - Neck Neck: Present: supple, normal ROM - Respiratory Respiratory effort: normal Respiratory: bilateral: CTA - Cardiovascular Heart Sounds: Present: S1 & S2. Absent: rub, click - Extremities Extremities: pulses symmetrical, No edema Peripheral Pulses: within normal limits - Abdominal General gastrointestinal: Present: soft, non-tender, non-distended, normal bowel sounds Male genitourinary: Present: normal - Integumentary Integumentary: Present: clear, warm, dry - Musculoskeletal Musculoskeletal: gait normal, strength equal bilaterally - Psychiatric Psychiatric: appropriate mood/affect, intact judgment & insight - Neurologic Neurologic: CNII-XII intact, moves all extremities Plan Activity: no restrictions Diet: low salt Follow up with: AARON RAY MD [Primary Care Provider] - 3-5 Days SAWYER DONOVAN MD [Staff Physician] - 7 Days
== END 2018-01-09 14:35 | disposition home or self-care (01) | DRG 872 ==
LOC: ED 22:04 → 3A 01-02 10:08
PROVIDERS: ADMIT Internal Medicine; ATTEND Internal Medicine
DX: A41.9 Sepsis, unspecified organism (principal); K57.20 Diverticulitis of large intestine with perforation and abscess without bleeding; I10 Essential (primary) hypertension; E55.9 Vitamin D deficiency, unspecified; F17.200 Nicotine dependence, unspecified, uncomplicated; G47.00 Insomnia, unspecified; E87.6 Hypokalemia; E78.5 Hyperlipidemia, unspecified; F17.210 Nicotine dependence, cigarettes, uncomplicated; Z82.49 Family history of ischemic heart disease and other diseases of the circulatory system; Z83.3 Family history of diabetes mellitus; Z71.6 Tobacco abuse counseling; Z88.5 Allergy status to narcotic agent; Z88.2 Allergy status to sulfonamides; Z88.8 Allergy status to other drugs, medicaments and biological substances
CPT/HCPCS: 36415; 74176; 74177; 80048; 80053; 81001; 83735; 84100; 85025; 85027; 96365; 96375; C9113; J1170; J1644; J1956; J2060; J2405; J2543; J3480; J7040; Q9967

== ENCOUNTER 2022-06-08 06:49 | Inpatient (IN) | payer OTHER ==
[2022-06-08] MEDS ORDERED: SODIUM CHLORIDE 0.9% 1000 ML 1,000 ML IV SCH (07:35)
[2022-06-08] MEDS ORDERED: SODIUM CHLORIDE 0.9% 1000 ML 1,000 ML ONE (07:50)
--- NOTE | 2022-06-08 08:05 | Anesthesia Consultation ---
Anesthesia Consult and Med Hx Date of service: 06/08/22 - Airway Anesthetic Teeth Evaluation: Poor (2 missing teeth ) ROM Head & Neck: Adequate Mental/Hyoid Distance: Adequate Mallampati Class: Class II Intubation Access Assessment: Probably Good - Pulmonary Exam CTA: Yes - Cardiac Exam Cardiac Exam: RRR - Pre-Operative Health Status ASA Pre-Surgery Classification: ASA2 Proposed Anesthetic Plan: MAC - Pulmonary Hx Smoking: Yes (1 pack per week - quit 2-3 days ago) Hx Asthma: No COPD: No Hx Sleep Apnea: No - Cardiovascular System Hx Hypertension: Yes (HLD) Hx Coronary Artery Disease: No - Central Nervous System Hx Neuromuscular Disorder: No (neuropathy BLE) - Gastrointestinal Hx Gastroesophageal Reflux Disease: Yes (controlled with medication) - Other Systems Hx Obesity: Yes (BMI 34) - Additional Comments Anesthesia Medical History Comments: no hx of anesthetic complications
--- NOTE | 2022-06-08 08:06 | Anesthesia Day of Surgery ---
Anesthesia Day of Surgery - Day of Surgery Patient Examined: Yes Patient H&P Reviewed: Yes Patient is NPO: Yes
[2022-06-08] MEDS ORDERED: propofoL 200 MG/20 ML VIAL IV ONE ×3 (08:27→09:05)
[2022-06-08] MEDS ORDERED: LIDOCAINE MPF (2%) 20 MG/1 ML VIAL 5 ML ONE (08:27)
[2022-06-08] MEDS ORDERED: KETAMINE/STERILE WATER 50 MG/ML SYRINGE ONE (08:27)
[2022-06-08] MEDS ORDERED: GLUCAGON (HUMAN RECOMBINANT) 1 MG/ML INJ ONE (09:02)
[2022-06-08] MEDS ORDERED: GLYCOPYRROLATE 0.4 MG/2 ML INJ ONE (09:21)
[2022-06-08] MEDS ORDERED: SIMETHICONE 80 MG CHEW TAB PO SCH (09:45)
[2022-06-08] MEDS ORDERED: ONDANSETRON 4 MG/2 ML INJ ONE (09:49)
[2022-06-08] MEDS ORDERED: ONDANSETRON 4 MG/2 ML INJ IV PRN ×2 (09:51→14:10)
[2022-06-08] MEDS ORDERED: SODIUM CHLORIDE FOR INHALATION NEBU 3 ML ONE (10:03)
[2022-06-08] MEDS ORDERED: ALBUTEROL 2.5 MG/3 ML NEBU IH ONE (10:03)
--- NOTE | 2022-06-08 10:12 | Short Stay Summary ---
Short Stay Documentation Date of service: 06/08/22 - History H&P: obtained from office - Allergies and Medications Current Medications: Allergies sulfamethoxazole [From Bactrim] Allergy (Verified 12/20/16 01:24) Rash trimethoprim [From Bactrim] Allergy (Verified 12/20/16 01:24) Rash Home Medications Medication Instructions Recorded Confirmed Last Taken Type Ergocalciferol [Vitamin D2] 1 cap PO QWEEK 01/02/18 06/08/22 06/04/22 History Omeprazole 20 mg PO DAILY #30 capsule. 01/09/18 06/08/22 06/07/22 Rx Pravastatin [Pravachol] 20 mg PO QHS #30 tablet 01/09/18 06/08/22 06/07/22 Rx Zolpidem (Nf) [Ambien (Nf)] 10 mg PO QHS #30 tablet 01/09/18 06/08/22 06/07/22 Rx amLODIPine 10 mg PO QDAY #30 tablet 01/09/18 06/08/22 06/07/22 Rx Active Medications Albuterol (Albuterol 2.5 Mg/3 Ml Nebu) 2.5 mg IH ONCE ONE Stop: 06/08/22 10:06 Sodium Chloride (Nacl 0.9% 1000 Ml) 1,000 mls @ 50 mls/hr IV DIRECT MILA Stop: 06/08/22 23:59 Ondansetron HCl (Ondansetron 4 Mg/2 Ml Inj) 4 mg IV Q4H PRN PRN Reason: Nausea And Vomiting Simethicone (Simethicone 80 Mg Chew Tab) 80 mg PO ONCE MILA Stop: 06/08/22 23:00 - Brief post op/procedure progress note Date of procedure: 06/08/22 Pre-op diagnosis: Colovesicular fistula Post-op diagnosis: same Procedure: Colonoscopy with biopsy and Marcie ink tattooing at 38 cm Anesthesia: MAC Findings: Diverticulosis of the sigmoid colon with narrowing at 35 to 38 cm possible sessile polyps in the same area. Prep is poor cecum is visualized. Surgeon: MARY LUJAN Estimated blood loss: none Pathology: list (Blood biopsy of polypoid lesions at 38 cm) - Disposition Condition at discharge: Good Disposition: 01 HOME / SELF CARE / HOMELESS Short Stay Discharge Plan Activity: advance as tolerated Follow up with: AARON RAY MD [Primary Care Provider] - 7 Days MARY LUJAN MD [Staff Physician] - 7 Days
--- NOTE | 2022-06-08 10:14 | Operative Report ---
Operative Report Operative Report: Date: 06/08/2022 Preop: Diagnosis: Colovesicular fistula with diverticulosis Postop: Diagnosis same with possible polypoid lesions at 38 cm Procedure: Colonoscopy with biopsy of polypoid lesions and Marcie ink tattoo Surgeon: Dr. Esparza Curator Of Education: None Anesthesia: MAC IV sedation Estimated blood loss: None Specimen: Biopsy of polypoid lesions at 38 cm Findings: Patient is taken to the endoscopic suite timeouts are completed consent on the chart. Rectal exam is performed and is normal.: Scope was advanced through the rectum into the rectosigmoid colon. At 35 cm the lumen of the colon in the sigmoid is narrow diverticulosis is seen initially no lesions are seen. The sigmoid colon is inspected and is normal. The transverse colon is identified and inspected and is normal. Scope was then advanced down the ascending colon to the cecum. The prep is noted to be moderate to poor. The [place] owingeh's foot ileocecal valve and appendiceal aperture are identified. Tip of the scope was confirmed to be in the right lower quadrant by palpation. Scope was slowly withdrawn confirming the above findings. At 38 cm several polypoid lesions are seen and biopsied tattoo ink is applied to this area at several locations circumferentially. The scope was then removed and the procedure is ended.
[2022-06-08] MEDS ORDERED: ALBUTEROL 2.5 MG/3 ML NEBU IH NR (10:30)
--- NOTE | 2022-06-08 12:20 | XRay Report ---
ABDOMEN 2 VIEWS INDICATION / CLINICAL INFORMATION: OBSTRUCTION SERIES. COMPARISON: 01/08/2018 FINDINGS: TUBES / LINES: None. BOWEL GAS PATTERN: Mildly dilated loops of right-sided colon measuring 10 cm. Several mildly dilated loops of small bowel measuring 3.5 cm. Air-fluid levels are seen. FREE AIR / EXTRALUMINAL GAS: None seen. ADDITIONAL FINDINGS: No significant additional findings. CHEST: Visualized chest shows no significant abnormality. IMPRESSION: 1. Ileus versus developing obstruction. No radiographic evidence of perforation. Radiographic versus CT follow-up based on clinical concern. Signer Name: Charlie Stauffer MD Signed: 06/08/2022 12:16 PM Workstation Name: [id number]
[2022-06-08] MEDS ORDERED: DICYCLOMINE 20 MG TAB PO ONE (12:35)
[2022-06-08] MEDS ORDERED: diphenhydrAMINE 50 MG/ML VIAL ONE (12:45)
[2022-06-08] MEDS ORDERED: diphenhydrAMINE 50 MG/ML VIAL IV ONE (13:00)
[2022-06-08] MEDS ORDERED: ACETAMINOPHEN 325 MG TAB PO PRN (14:10)
[2022-06-08] MEDS ORDERED: METOCLOPRAMIDE 10 MG/2 ML INJ IV PRN (14:10)
[2022-06-08] MEDS ORDERED: MORPHINE 2 MG/1 ML INJ IV PRN (14:10)
--- NOTE | 2022-06-08 14:10 | Post Anesthesia Evaluation ---
- Post Anesthesia Evaluation Patient Participated: Yes Airway Patent: Yes Stable Respiratory Function: Yes Nausea/Vomiting: No Temp > 96.8F: Yes Pain Manageable: Yes Adequeate Hydration: Yes Anesthesia Complications: No Block Receding Appropriately: Not Applicable Patient on Ventilator: No
[2022-06-08] MEDS: FAMOTIDINE 20 MG/2 ML INJ IV SCH ×2 (15:30→22:55)
[2022-06-08] MEDS: HYDROmorphone 0.5 MG/0.5 ML INJ IV PRN (15:35)
[2022-06-08] MEDS: HEPARIN 5,000 UNIT/1 ML VIAL SUB-Q SCH ×2 (15:58→22:55)
[2022-06-08 16:30] LABS: Hematocrit 47.6 % (35.5-45.6); Hemoglobin 15.8 gm/dl (11.8-15.2); Mean Corpuscular HGB Conc 33 % (32-34); Mean Corpuscular Volume 95 fl (84-94); Platelet Count 150 K/mm3 (140-440); Red Blood Count 5.02 M/mm3 (3.65-5.03); Red Cell Distribution Width 15.2 % (13.2-15.2)
[2022-06-08 17:57] LABS: Alanine Aminotransferase 11 units/L (7-56); Albumin 3.8 g/dL (3.9-5); Blood Urea Nitrogen 8 mg/dL (9-20); Calcium 8.5 mg/dL (8.4-10.2); Hemolysis Index 77
[2022-06-08 18:04] LABS: Total Cells Counted 100
[2022-06-08 18:05] LABS: Basophils % (Manual) 0 % (0.0-1.8); Eosinophils % (Manual) 0 % (0.0-4.3)
[2022-06-08 18:06] LABS: Platelet Estimate Consistent w Auto; RBC Morphology Normal
[2022-06-08 18:08] LABS: BUN/Creatinine Ratio 13
[2022-06-09] MEDS: HYDROmorphone 0.5 MG/0.5 ML INJ IV PRN ×2 (00:42→06:29)
[2022-06-09] MEDS: ZOLPIDEM 5 MG TAB PO PRN ×2 (00:42→22:17)
--- NOTE | 2022-06-09 07:03 | History and Physical Report ---
History of Present Illness Date of examination: 06/08/22 Date of admission: 06/08/22 14:10 Chief complaint: Postop admission for observation History of present illness: Patient had colovesicular fistula and diverticulitis which was surgically repaired. Patient continues to have abdominal pain for which patient being admitted for observation at the request of surgery. Patient has history of hypertension and GERD and hyperlipidemia and vitamin D deficiency. Postop patient doing well. Past History Past Medical History: GERD, hypertension, hyperlipidemia, other (Vitamin D deficiency) Past Surgical History: Other (Colovesicular fistula correction) Social history: lives with family, full code Family history: hypertension Medications and Allergies Allergies Allergy/AdvReac Type Severity Reaction Status Date / Time sulfamethoxazole Allergy Rash Verified 12/20/16 01:24 [From Bactrim] trimethoprim [From Bactrim] Allergy Rash Verified 12/20/16 01:24 Home Medications Medication Instructions Recorded Confirmed Last Taken Type Ergocalciferol [Vitamin D2] 1 cap PO QWEEK 01/02/18 06/08/22 06/04/22 History Omeprazole 20 mg PO DAILY #30 capsule. 01/09/18 06/08/22 06/07/22 Rx Pravastatin [Pravachol] 20 mg PO QHS #30 tablet 01/09/18 06/08/22 06/07/22 Rx Zolpidem (Nf) [Ambien (Nf)] 10 mg PO QHS #30 tablet 01/09/18 06/08/22 06/07/22 Rx amLODIPine 10 mg PO QDAY #30 tablet 01/09/18 06/08/22 06/07/22 Rx Active Meds: Active Medications Acetaminophen (Acetaminophen 325 Mg Tab) 650 mg PO Q4H PRN PRN Reason: Pain MILD(1-3)/Fever >100.5/MORRIS Famotidine (Famotidine 20 Mg/2 Ml Inj) 20 mg IV BID [facility] Last Admin: 06/08/22 22:55 Dose: 20 mg Heparin Sodium (Porcine) (Heparin 5,000 Unit/1 Ml Vial) 5,000 unit SUB-Q Q12HR [facility] Last Admin: 06/08/22 22:55 Dose: 5,000 unit Hydromorphone HCl (Hydromorphone 0.5 Mg/0.5 Ml Inj) 0.5 mg IV Q3H PRN PRN Reason: Pain , Severe (7-10) Last Admin: 06/09/22 06:29 Dose: 0.5 mg Metoclopramide HCl (Metoclopramide 10 Mg/2 Ml Inj) 10 mg IV Q6H PRN PRN Reason: Nausea And Vomiting Last Admin: 06/09/22 06:29 Dose: 10 mg Morphine Sulfate (Morphine 2 Mg/1 Ml Inj) 2 mg IV Q4H PRN PRN Reason: Pain, Moderate (4-6) Last Admin: 06/08/22 19:03 Dose: 2 mg Ondansetron HCl (Ondansetron 4 Mg/2 Ml Inj) 4 mg IV Q8H PRN PRN Reason: Nausea And Vomiting Last Admin: 06/08/22 22:55 Dose: 4 mg Sodium Chloride (Sodium Chloride 0.9% 10 Ml Flush Syringe) 10 ml IV BID MILA Last Admin: 06/08/22 22:56 Dose: 10 ml Sodium Chloride (Sodium Chloride 0.9% 10 Ml Flush Syringe) 10 ml IV PRN PRN PRN Reason: LINE FLUSH Zolpidem Tartrate (Zolpidem 5 Mg Tab) 5 mg PO QHS PRN PRN Reason: Sleep Last Admin: 06/09/22 00:42 Dose: 5 mg Review of Systems All systems: negative Gastrointestinal: abdominal pain, nausea Exam - Constitutional Vitals: Temp Pulse Resp BP Pulse Ox 98.0 F 52 L 20 131/74 95 06/09/22 05:51 06/09/22 05:51 06/09/22 05:51 06/09/22 05:51 06/09/22 05:51 General appearance: Present: mild distress, well-nourished - EENT Eyes: Present: PERRL ENT: hearing intact, clear oral mucosa - Neck Neck: Present: supple, normal ROM - Respiratory Respiratory effort: normal Respiratory: bilateral: CTA - Cardiovascular Heart rate: 72 Rhythm: regular Heart Sounds: Present: S1 & S2. Absent: rub, click - Extremities Extremities: pulses symmetrical, No edema Peripheral Pulses: within normal limits - Abdominal General gastrointestinal: Present: soft, non-tender, non-distended, normal bowel sounds Male genitourinary: Present: normal - Integumentary Integumentary: Present: clear, warm, dry - Musculoskeletal Musculoskeletal: gait normal, strength equal bilaterally - Psychiatric Psychiatric: appropriate mood/affect, intact judgment & insight - Neurologic Neurologic: CNII-XII intact, moves all extremities Results - Labs CBC & Chem 7: 06/08/22 16:10 06/08/22 16:10 Labs: Laboratory Last Values WBC 11.9 K/mm3 (4.5-11.0) H 06/08/22 16:10 RBC 5.02 M/mm3 (3.65-5.03) 06/08/22 16:10 Hgb 15.8 gm/dl (11.8-15.2) H 06/08/22 16:10 Hct 47.6 % (35.5-45.6) H 06/08/22 16:10 MCV 95 fl (84-94) H 06/08/22 16:10 MCH 32 pg (28-32) 06/08/22 16:10 MCHC 33 % (32-34) 06/08/22 16:10 RDW 15.2 % (13.2-15.2) 06/08/22 16:10 Plt Count 150 K/mm3 (140-440) 06/08/22 16:10 Add Manual Diff Complete 06/08/22 16:10 Total Counted 100 06/08/22 16:10 Seg Neutrophils % Tool Grinder 06/08/22 16:10 Band Neutrophils % 0 % 06/08/22 16:10 Lymphocytes % (Manual) 2.0 % (13.4-35.0) L 06/08/22 16:10 Reactive Lymphs % (Man) 0 % 06/08/22 16:10 Monocytes % (Manual) 1.0 % (0.0-7.3) 06/08/22 16:10 Eosinophils % (Manual) 0 % (0.0-4.3) 06/08/22 16:10 Basophils % (Manual) 0 % (0.0-1.8) 06/08/22 16:10 Metamyelocytes % 0 % 06/08/22 16:10 Myelocytes % 0 % 06/08/22 16:10 Promyelocytes % 0 % 06/08/22 16:10 Blast Cells % 0 % 06/08/22 16:10 Nucleated RBC % Not Reportable 06/08/22 16:10 Seg Neutrophils # Man 11.5 K/mm3 (1.8-7.7) H 06/08/22 16:10 Band Neutrophils # 0.0 K/mm3 06/08/22 16:10 Lymphocytes # (Manual) 0.2 K/mm3 (1.2-5.4) L 06/08/22 16:10 Abs React Lymphs (Man) 0.0 K/mm3 06/08/22 16:10 Monocytes # (Manual) 0.1 K/mm3 (0.0-0.8) 06/08/22 16:10 Eosinophils # (Manual) 0.0 K/mm3 (0.0-0.4) 06/08/22 16:10 Basophils # (Manual) 0.0 K/mm3 (0.0-0.1) 06/08/22 16:10 Metamyelocytes # 0.0 K/mm3 06/08/22 16:10 Myelocytes # 0.0 K/mm3 06/08/22 16:10 Promyelocytes # 0.0 K/mm3 06/08/22 16:10 Blast Cells # 0.0 K/mm3 06/08/22 16:10 WBC Morphology Not Reportable 06/08/22 16:10 WBC Morphology TNR 06/08/22 16:10 Hypersegmented Neuts Not Reportable 06/08/22 16:10 Hyposegmented Neuts Not Reportable 06/08/22 16:10 Hypogranular Neuts Not Reportable 06/08/22 16:10 Smudge Cells Not Reportable 06/08/22 16:10 Toxic Granulation Not Reportable 06/08/22 16:10 Toxic Vacuolation Not Reportable 06/08/22 16:10 Dohle Bodies Not Reportable 06/08/22 16:10 Pelger-Huet Anomaly Not Reportable 06/08/22 16:10 Breanna Rods Not Reportable 06/08/22 16:10 Platelet Estimate Consistent w auto 06/08/22 16:10 Clumped Platelets Not Reportable 06/08/22 16:10 Plt Clumps, EDTA Not Reportable 06/08/22 16:10 Large Platelets Not Reportable 06/08/22 16:10 Giant Platelets Not Reportable 06/08/22 16:10 Platelet Satelliting Not Reportable 06/08/22 16:10 Plt Morphology Comment Not Reportable 06/08/22 16:10 RBC Morphology Normal 06/08/22 16:10 Dimorphic RBCs Not Reportable 06/08/22 16:10 Polychromasia Not Reportable 06/08/22 16:10 Hypochromasia Not Reportable 06/08/22 16:10 Poikilocytosis Not Reportable 06/08/22 16:10 Anisocytosis Not Reportable 06/08/22 16:10 Microcytosis Not Reportable 06/08/22 16:10 Macrocytosis Not Reportable 06/08/22 16:10 Spherocytes Not Reportable 06/08/22 16:10 Pappenheimer Bodies Not Reportable 06/08/22 16:10 Sickle Cells Not Reportable 06/08/22 16:10 Target Cells Not Reportable 06/08/22 16:10 Tear Drop Cells Not Reportable 06/08/22 16:10 Ovalocytes Not Reportable 06/08/22 16:10 Helmet Cells Not Reportable 06/08/22 16:10 Wu-[place] Bodies Not Reportable 06/08/22 16:10 [place] Rings Not Reportable 06/08/22 16:10 [place] Cells Not Reportable 06/08/22 16:10 Bite Cells Not Reportable 06/08/22 16:10 Crenated Cell Not Reportable 06/08/22 16:10 Elliptocytes Not Reportable 06/08/22 16:10 Acanthocytes (Spur) Not Reportable 06/08/22 16:10 Rouleaux Not Reportable 06/08/22 16:10 Hemoglobin C Crystals Not Reportable 06/08/22 16:10 Schistocytes Not Reportable 06/08/22 16:10 Malaria parasites Not Reportable 06/08/22 16:10 Alexis Bodies Not Reportable 06/08/22 16:10 Hem Pathologist Commnt No 06/08/22 16:10 Sodium 141 mmol/L (137-145) 06/08/22 16:10 Potassium 4.2 mmol/L (3.6-5.0) 06/08/22 16:10 Chloride 109.3 mmol/L (98-107) H 06/08/22 16:10 Carbon Dioxide 18 mmol/L (22-30) L 06/08/22 16:10 Anion Gap 18 mmol/L 06/08/22 16:10 BUN 8 mg/dL (9-20) L 06/08/22 16:10 Creatinine 0.6 mg/dL (0.8-1.3) L 06/08/22 16:10 Estimated GFR > 60 ml/min 06/08/22 16:10 BUN/Creatinine Ratio 13 % 06/08/22 16:10 Glucose 106 mg/dL (75-100) H 06/08/22 16:10 Calcium 8.5 mg/dL (8.4-10.2) 06/08/22 16:10 Total Bilirubin 0.40 mg/dL (0.1-1.2) 06/08/22 16:10 AST 14 units/L (5-40) 06/08/22 16:10 ALT 11 units/L (7-56) 06/08/22 16:10 Alkaline Phosphatase 98 units/L (35-129) 06/08/22 16:10 Total Protein 5.6 g/dL (6.3-8.2) L 06/08/22 16:10 Albumin 3.8 g/dL (3.9-5) L 06/08/22 16:10 Albumin/Globulin Ratio 2.1 % 06/08/22 16:10 Jimenez/IV: Voiding Method Urinal Assessment and Plan Advance Directives: Yes (Full code) VTE prophylaxis?: Chemical Plan of care discussed with patient/family: Yes - Patient Problems (1) Colovesical fistula Current Visit: Yes Status: Acute Plan to address problem: Surgically corrected Postop observation (2) Hypertension Current Visit: Yes Status: Chronic Qualifiers: Hypertension type: primary hypertension Qualified Code(s): I10 - Essential (primary) hypertension Plan to address problem: Hold antihypertensives for now Resume when the blood pressure goes up The patient is n.p.o. (3) GERD (gastroesophageal reflux disease) Current Visit: Yes Status: Chronic Qualifiers: Esophagitis presence: without esophagitis Qualified Code(s): K21.9 - Gastro-esophageal reflux disease without esophagitis Plan to address problem: IV Protonix (4) Hyperlipidemia Current Visit: Yes Status: Chronic Qualifiers: Hyperlipidemia type: mixed hyperlipidemia Qualified Code(s): E78.2 - Mixed hyperlipidemia Plan to address problem: Hold statins Patient is n.p.o. (5) DVT prophylaxis Current Visit: Yes Status: Acute Plan to address problem: On heparin and GI prophylaxis (6) Advance care planning Current Visit: Yes Status: Acute Plan to address problem: Disease education conducted, care plan discussed, diagnosis and prognosis discussed. Patient is full code. Patient acknowledged understanding with care plan. +30 minutes.
[2022-06-09] MEDS: CEFEPIME/NS 2 GM/100 ML 2 GM/100 ML BAG IV SCH ×3 (10:07→23:52)
[2022-06-09] MEDS: FAMOTIDINE 20 MG/2 ML INJ IV SCH ×2 (10:10→22:11)
[2022-06-09] MEDS ORDERED: HYDROmorphone 2 MG/1 ML INJ IV ONE (10:15)
[2022-06-09] MEDS ORDERED: ONDANSETRON 4 MG/2 ML INJ IV ONE (10:15)
[2022-06-09] MEDS: HEPARIN 5,000 UNIT/1 ML VIAL SUB-Q SCH ×2 (10:25→22:11)
[2022-06-09] MEDS: DEXTROSE 5% IN WATER 1,000 ML IV SCH (10:51)
--- NOTE | 2022-06-09 11:27 | Progress Note ---
Assessment and Plan Patient is status post colonoscopy for a colovesicular fistula done yesterday. Postoperatively he had fairly severe pain 10 of 10 scale with distention. He has a long history of recurrent diverticulitis with annual attacks for the last 10 years. On this current year he spent 2 different admissions at the [facility] managing diverticulitis of the sigmoid colon with an abscess formation on the right lower quadrant. Through the night the pain is improved but still fairly significant and something like a 6-8 over 10. Patient did have some nausea through the night but is prepared to try some food today. His white count today is 11,000. Subjective Date of service: 06/09/22 Narrative: Patient is status post colonoscopy for a colovesicular fistula done yesterday. Postoperatively he had fairly severe pain 10 of 10 scale with distention. He has a long history of recurrent diverticulitis with annual attacks for the last 10 years. On this current year he spent 2 different admissions at the [facility] managing diverticulitis of the sigmoid colon with an abscess formation on the right lower quadrant. Through the night the pain is improved but still fairly significant and something like a 6-8 over 10. Patient did have some nausea through the night but is prepared to try some food today. His white count today is 11,000. Objective Vital Signs - 12hr 06/09/22 06/09/22 03:32 05:51 Temperature 98.0 F Pulse Rate 52 L Respiratory 18 20 Rate Blood Pressure 131/74 O2 Sat by Pulse 98 95 Oximetry - Labs 06/08/22 16:10 06/08/22 16:10 Diabetes panel 06/08/22 Range/Units 16:10 Sodium 141 (137-145) mmol/L Potassium 4.2 (3.6-5.0) mmol/L Chloride 109.3 H (98-107) mmol/L Carbon Dioxide 18 L (22-30) mmol/L BUN 8 L (9-20) mg/dL Creatinine 0.6 L (0.8-1.3) mg/dL Glucose 106 H (75-100) mg/dL Calcium 8.5 (8.4-10.2) mg/dL AST 14 (5-40) units/L ALT 11 (7-56) units/L Alkaline Phosphatase 98 (35-129) units/L Total Protein 5.6 L (6.3-8.2) g/dL Albumin 3.8 L (3.9-5) g/dL Calcium panel 06/08/22 Range/Units 16:10 Calcium 8.5 (8.4-10.2) mg/dL Albumin 3.8 L (3.9-5) g/dL Pituitary panel 06/08/22 Range/Units 16:10 Sodium 141 (137-145) mmol/L Potassium 4.2 (3.6-5.0) mmol/L Chloride 109.3 H (98-107) mmol/L Carbon Dioxide 18 L (22-30) mmol/L BUN 8 L (9-20) mg/dL Creatinine 0.6 L (0.8-1.3) mg/dL Glucose 106 H (75-100) mg/dL Calcium 8.5 (8.4-10.2) mg/dL Adrenal panel 06/08/22 Range/Units 16:10 Sodium 141 (137-145) mmol/L Potassium 4.2 (3.6-5.0) mmol/L Chloride 109.3 H (98-107) mmol/L Carbon Dioxide 18 L (22-30) mmol/L BUN 8 L (9-20) mg/dL Creatinine 0.6 L (0.8-1.3) mg/dL Glucose 106 H (75-100) mg/dL Calcium 8.5 (8.4-10.2) mg/dL Total Bilirubin 0.40 (0.1-1.2) mg/dL AST 14 (5-40) units/L ALT 11 (7-56) units/L Alkaline Phosphatase 98 (35-129) units/L Total Protein 5.6 L (6.3-8.2) g/dL Albumin 3.8 L (3.9-5) g/dL
[2022-06-09 11:53] LABS: Basophils % (Auto) 0.2 % (0.0-1.8); Eosinophils % (Auto) 0.1 % (0.0-4.3); Hematocrit 45.7 % (35.5-45.6); Hemoglobin 15.1 gm/dl (11.8-15.2); Lymphocytes # (Auto) 1.1 K/mm3 (1.2-5.4); Lymphocytes % (Auto) 11.8 % (13.4-35.0); Mean Corpuscular HGB Conc 33 % (32-34); Mean Corpuscular Volume 93 fl (84-94); Monocytes # (Auto) 0.7 K/mm3 (0.0-0.8); Monocytes % (Auto) 7.8 % (0.0-7.3); Platelet Count 156 K/mm3 (140-440); Red Blood Count 4.93 M/mm3 (3.65-5.03); Red Cell Distribution Width 15.5 % (13.2-15.2)
[2022-06-09 12:09] LABS: Blood Urea Nitrogen 13 mg/dL (9-20); Calcium 8.9 mg/dL (8.4-10.2); Hemolysis Index 0
[2022-06-09 12:15] LABS: BUN/Creatinine Ratio 19
[2022-06-09] MEDS: HYDROmorphone 1 MG/1 ML INJ IV PRN ×2 (15:09→22:10)
--- NOTE | 2022-06-09 18:19 | Progress Note ---
Assessment and Plan Assessment and plan: #Colovesicular fistula Status post repair by general surgery on 06/08/2022 General surgery consulted; appreciate recs Continue antiemetics and analgesics as needed. Starting clear liquid diet tomorrow morning. #Hypertension #Hyperlipidemia - home medications: Amlodipine 5 mg daily and atorvastatin 40 mg daily - current medications: Amlodipine 5 mg daily and atorvastatin 40 mg daily - SBP goal <160 and DBP goal <90 while inpatient - continue to monitor #GERD Continue IV Pepcid 20 mg twice daily. Can transition to home omeprazole 40 mg daily when patient can tolerate p.o. intake. #Obesity #Weight loss counseling #Exercise counseling - BMI 34.2 - Counseled patient on the importance of weight loss, incorporating exercise, and dietary changes (lean meats, fresh fruits and vegetables, and water intake). Patient expresses understanding. - Time: +15 min #Advanced care planning -Disease education conducted, care plan discussed, diagnoses discussed, prognosis discussed, and patient acknowledges understanding with care plan -Time: +30 min Disposition Plan: Continue medical management Total Time Spent with Patient (Minutes): 45 minutes History Interval history: Patient is status post repair of colovesicular fistula by general surgery yesterday. Patient tolerated the procedure well well Hospitalist Physical - Constitutional Vitals: Temp Pulse Resp BP Pulse Ox 98.5 F 66 20 120/74 94 06/09/22 16:20 06/09/22 16:20 06/09/22 16:20 06/09/22 16:20 06/09/22 16:20 General appearance: Present: mild distress, well-nourished, obese - EENT Eyes: Present: PERRL, EOM intact ENT: hearing intact, clear oral mucosa, dentition normal - Neck Neck: Present: supple, normal ROM - Respiratory Respiratory effort: normal Respiratory: bilateral: CTA - Cardiovascular Rhythm: regular Heart Sounds: Present: S1 & S2 - Extremities Extremities: no ischemia, pulses intact, pulses symmetrical, No edema, normal temperature, normal color Peripheral Pulses: within normal limits - Abdominal General gastrointestinal: soft, tender, non-distended, normal bowel sounds Localized gastrointestinal: tender: RLQ, LLQ, epigastric periumbilical - Integumentary Integumentary: Present: clear, warm, dry - Psychiatric Psychiatric: appropriate mood/affect, intact judgment & insight, memory intact, cooperative - Neurologic Neurologic: CNII-XII intact, moves all extremities - Allied Health Allied health notes reviewed: nursing Results - Labs CBC & Chem 7: 06/09/22 10:46 06/09/22 10:46 Labs: Laboratory Last Values WBC 9.0 K/mm3 (4.5-11.0) 06/09/22 10:46 RBC 4.93 M/mm3 (3.65-5.03) 06/09/22 10:46 Hgb 15.1 gm/dl (11.8-15.2) 06/09/22 10:46 Hct 45.7 % (35.5-45.6) H 06/09/22 10:46 MCV 93 fl (84-94) 06/09/22 10:46 MCH 31 pg (28-32) 06/09/22 10:46 MCHC 33 % (32-34) 06/09/22 10:46 RDW 15.5 % (13.2-15.2) H 06/09/22 10:46 Plt Count 156 K/mm3 (140-440) 06/09/22 10:46 Lymph % (Auto) 11.8 % (13.4-35.0) L 06/09/22 10:46 Saline % (Auto) 7.8 % (0.0-7.3) H 06/09/22 10:46 Eos % (Auto) 0.1 % (0.0-4.3) 06/09/22 10:46 Baso % (Auto) 0.2 % (0.0-1.8) 06/09/22 10:46 Lymph # (Auto) 1.1 K/mm3 (1.2-5.4) L 06/09/22 10:46 [place]ine # (Auto) 0.7 K/mm3 (0.0-0.8) 06/09/22 10:46 Eos # (Auto) 0.0 K/mm3 (0.0-0.4) 06/09/22 10:46 Baso # (Auto) 0.0 K/mm3 (0.0-0.1) 06/09/22 10:46 Add Manual Diff Complete 06/08/22 16:10 Total Counted 100 06/08/22 16:10 Seg Neutrophils % 80.1 % (40.0-70.0) H 06/09/22 10:46 Band Neutrophils % 0 % 06/08/22 16:10 Lymphocytes % (Manual) 2.0 % (13.4-35.0) L 06/08/22 16:10 Reactive Lymphs % (Man) 0 % 06/08/22 16:10 Monocytes % (Manual) 1.0 % (0.0-7.3) 06/08/22 16:10 Eosinophils % (Manual) 0 % (0.0-4.3) 06/08/22 16:10 Basophils % (Manual) 0 % (0.0-1.8) 06/08/22 16:10 Metamyelocytes % 0 % 06/08/22 16:10 Myelocytes % 0 % 06/08/22 16:10 Promyelocytes % 0 % 06/08/22 16:10 Blast Cells % 0 % 06/08/22 16:10 Nucleated RBC % Not Reportable 06/08/22 16:10 Seg Neutrophils # 7.2 K/mm3 (1.8-7.7) 06/09/22 10:46 Seg Neutrophils # Man 11.5 K/mm3 (1.8-7.7) H 06/08/22 16:10 Band Neutrophils # 0.0 K/mm3 06/08/22 16:10 Lymphocytes # (Manual) 0.2 K/mm3 (1.2-5.4) L 06/08/22 16:10 Abs React Lymphs (Man) 0.0 K/mm3 06/08/22 16:10 Monocytes # (Manual) 0.1 K/mm3 (0.0-0.8) 06/08/22 16:10 Eosinophils # (Manual) 0.0 K/mm3 (0.0-0.4) 06/08/22 16:10 Basophils # (Manual) 0.0 K/mm3 (0.0-0.1) 06/08/22 16:10 Metamyelocytes # 0.0 K/mm3 06/08/22 16:10 Myelocytes # 0.0 K/mm3 06/08/22 16:10 Promyelocytes # 0.0 K/mm3 06/08/22 16:10 Blast Cells # 0.0 K/mm3 06/08/22 16:10 WBC Morphology Not Reportable 06/08/22 16:10 WBC Morphology TNR 06/08/22 16:10 Hypersegmented Neuts Not Reportable 06/08/22 16:10 Hyposegmented Neuts Not Reportable 06/08/22 16:10 Hypogranular Neuts Not Reportable 06/08/22 16:10 Smudge Cells Not Reportable 06/08/22 16:10 Toxic Granulation Not Reportable 06/08/22 16:10 Toxic Vacuolation Not Reportable 06/08/22 16:10 Dohle Bodies Not Reportable 06/08/22 16:10 Pelger-Huet Anomaly Not Reportable 06/08/22 16:10 Breanna Rods Not Reportable 06/08/22 16:10 Platelet Estimate Consistent w auto 06/08/22 16:10 Clumped Platelets Not Reportable 06/08/22 16:10 Plt Clumps, EDTA Not Reportable 06/08/22 16:10 Large Platelets Not Reportable 06/08/22 16:10 Giant Platelets Not Reportable 06/08/22 16:10 Platelet Satelliting Not Reportable 06/08/22 16:10 Plt Morphology Comment Not Reportable 06/08/22 16:10 RBC Morphology Normal 06/08/22 16:10 Dimorphic RBCs Not Reportable 06/08/22 16:10 Polychromasia Not Reportable 06/08/22 16:10 Hypochromasia Not Reportable 06/08/22 16:10 Poikilocytosis Not Reportable 06/08/22 16:10 Anisocytosis Not Reportable 06/08/22 16:10 Microcytosis Not Reportable 06/08/22 16:10 Macrocytosis Not Reportable 06/08/22 16:10 Spherocytes Not Reportable 06/08/22 16:10 Pappenheimer Bodies Not Reportable 06/08/22 16:10 Sickle Cells Not Reportable 06/08/22 16:10 Target Cells Not Reportable 06/08/22 16:10 Tear Drop Cells Not Reportable 06/08/22 16:10 Ovalocytes Not Reportable 06/08/22 16:10 Helmet Cells Not Reportable 06/08/22 16:10 Wu-[place] Bodies Not Reportable 06/08/22 16:10 [place]tha Rings Not Reportable 06/08/22 16:10 Ana Cells Not Reportable 06/08/22 16:10 Bite Cells Not Reportable 06/08/22 16:10 Crenated Cell Not Reportable 06/08/22 16:10 Elliptocytes Not Reportable 06/08/22 16:10 Acanthocytes (Spur) Not Reportable 06/08/22 16:10 Rouleaux Not Reportable 06/08/22 16:10 Hemoglobin C Crystals Not Reportable 06/08/22 16:10 Schistocytes Not Reportable 06/08/22 16:10 Malaria parasites Not Reportable 06/08/22 16:10 Alexis Bodies Not Reportable 06/08/22 16:10 Hem Pathologist Commnt No 06/08/22 16:10 Sodium 141 mmol/L (137-145) 06/09/22 10:46 Potassium 4.2 mmol/L (3.6-5.0) 06/09/22 10:46 Chloride 105.4 mmol/L (98-107) 06/09/22 10:46 Carbon Dioxide 24 mmol/L (22-30) 06/09/22 10:46 Anion Gap 16 mmol/L 06/09/22 10:46 BUN 13 mg/dL (9-20) 06/09/22 10:46 Creatinine 0.7 mg/dL (0.8-1.3) L 06/09/22 10:46 Estimated GFR > 60 ml/min 06/09/22 10:46 BUN/Creatinine Ratio 19 % 06/09/22 10:46 Glucose 125 mg/dL (75-100) H 06/09/22 10:46 Calcium 8.9 mg/dL (8.4-10.2) 06/09/22 10:46 Total Bilirubin 0.40 mg/dL (0.1-1.2) 06/08/22 16:10 AST 14 units/L (5-40) 06/08/22 16:10 ALT 11 units/L (7-56) 06/08/22 16:10 Alkaline Phosphatase 98 units/L (35-129) 06/08/22 16:10 Total Protein 5.6 g/dL (6.3-8.2) L 06/08/22 16:10 Albumin 3.8 g/dL (3.9-5) L 06/08/22 16:10 Albumin/Globulin Ratio 2.1 % 06/08/22 16:10 Jimenez/IV: Voiding Method Toilet Active Medications - Current Medications Current Medications: Generic Name Dose Route Start Last Admin Trade Name Salvatoreq PRN Reason Stop Dose Admin Acetaminophen 650 mg 06/08/22 14:10 Acetaminophen 325 Mg Tab PO Q4H PRN Pain MILD(1-3)/Fever >100.5/MORRIS Famotidine 20 mg 06/08/22 15:00 06/09/22 10:10 Famotidine 20 Mg/2 Ml Inj IV 20 mg BID MILA Administration Heparin Sodium (Porcine) 5,000 unit 06/08/22 14:15 06/09/22 10:25 Heparin 5,000 Unit/1 Ml Vial SUB-Q 5,000 unit Q12HR MILA Administration Hydromorphone HCl 1 mg 06/09/22 13:00 06/09/22 15:09 Hydromorphone 1 Mg/1 Ml Inj IV 1 mg Q4H PRN Administration Pain , Severe (7-10) Cefepime HCl 2 gm in 100 mls @ 200 mls/hr 06/09/22 08:00 06/09/22 10:07 Cefepime/Ns 2 Gm/100 Ml IV 200 mls/hr Q8H MILA Administration Protocol Dextrose 1,000 mls @ 75 mls/hr 06/09/22 08:00 06/09/22 10:51 D5w IV 75 mls/hr DIRECT MILA Administration Morphine Sulfate 2 mg 06/08/22 14:10 06/08/22 19:03 Morphine 2 Mg/1 Ml Inj IV 2 mg Q4H PRN Administration Pain, Moderate (4-6) Ondansetron HCl 4 mg 06/08/22 14:10 06/08/22 22:55 Ondansetron 4 Mg/2 Ml Inj IV 4 mg Q8H PRN Administration Nausea And Vomiting Sodium Chloride 10 ml 06/08/22 22:00 06/09/22 10:48 Sodium Chloride 0.9% 10 Ml Flush Syringe IV Not Given BID MILA Sodium Chloride 10 ml 06/08/22 14:10 Sodium Chloride 0.9% 10 Ml Flush Syringe IV PRN PRN LINE FLUSH Zolpidem Tartrate 5 mg 06/08/22 22:36 06/09/22 00:42 Zolpidem 5 Mg Tab PO 5 mg QHS PRN Administration Sleep
[2022-06-10] MEDS: HYDROmorphone 1 MG/1 ML INJ IV PRN ×3 (06:58→20:52)
[2022-06-10] MEDS: DEXTROSE 5% IN WATER 1,000 ML IV SCH ×2 (07:00→18:21)
[2022-06-10] MEDS: FAMOTIDINE 20 MG/2 ML INJ IV SCH ×2 (09:45→21:03)
[2022-06-10] MEDS: HEPARIN 5,000 UNIT/1 ML VIAL SUB-Q SCH ×2 (09:45→21:16)
[2022-06-10] MEDS: CEFEPIME/NS 2 GM/100 ML 2 GM/100 ML BAG IV SCH (09:45)
--- NOTE | 2022-06-10 11:16 | Progress Note ---
Assessment and Plan 61-year-old male 2 days status post colonoscopy for evaluation of chronic colovesicular fistula due to chronic diverticular disease. Patient was admitted after colonoscopy for abdominal pain. Patient is afebrile and stable, no leukocytosis with subjective mild improvement in abdominal pain. Since pain fairly significant we will order CT scan of the abdomen and pelvis. Subjective Date of service: 06/10/22 Narrative: No acute events overnight. Patient says that his pain is slightly improved compared to yesterday. He has been able to ambulate and he is tolerating liquids but does not care for was being brought on his tray and sometimes they feel that it causes cramping. He denies any fevers chills or nausea or vomiting. He denies any dysuria. Objective Vital Signs - 12hr 06/09/22 06/10/22 06/10/22 23:29 01:23 04:18 Temperature 99.0 F 98.7 F Pulse Rate 60 59 L Respiratory 18 18 Rate Blood Pressure 121/72 123/70 O2 Sat by Pulse 94 98 97 Oximetry - General physical appearance well developed, no distress, moderate pain, obese - Eyes PERRL - Respiratory normal expansion, normal respiratory effort - Abdomen soft, not rebound, not guarding, not rigid, other (generalized tenderness to palpation) - Labs 06/09/22 10:46 06/09/22 10:46 Diabetes panel 06/09/22 Range/Units 10:46 Sodium 141 (137-145) mmol/L Potassium 4.2 (3.6-5.0) mmol/L Chloride 105.4 (98-107) mmol/L Carbon Dioxide 24 (22-30) mmol/L BUN 13 (9-20) mg/dL Creatinine 0.7 L (0.8-1.3) mg/dL Glucose 125 H (75-100) mg/dL Calcium 8.9 (8.4-10.2) mg/dL Calcium panel 06/09/22 Range/Units 10:46 Calcium 8.9 (8.4-10.2) mg/dL Pituitary panel 06/09/22 Range/Units 10:46 Sodium 141 (137-145) mmol/L Potassium 4.2 (3.6-5.0) mmol/L Chloride 105.4 (98-107) mmol/L Carbon Dioxide 24 (22-30) mmol/L BUN 13 (9-20) mg/dL Creatinine 0.7 L (0.8-1.3) mg/dL Glucose 125 H (75-100) mg/dL Calcium 8.9 (8.4-10.2) mg/dL Adrenal panel 06/09/22 Range/Units 10:46 Sodium 141 (137-145) mmol/L Potassium 4.2 (3.6-5.0) mmol/L Chloride 105.4 (98-107) mmol/L Carbon Dioxide 24 (22-30) mmol/L BUN 13 (9-20) mg/dL Creatinine 0.7 L (0.8-1.3) mg/dL Glucose 125 H (75-100) mg/dL Calcium 8.9 (8.4-10.2) mg/dL
--- NOTE | 2022-06-10 13:04 | Cat Scan Report ---
CT ABDOMEN AND PELVIS WITH CONTRAST INDICATION / CLINICAL INFORMATION: abdominal pain s/p colonoscopy. TECHNIQUE: Axial CT images were obtained through the abdomen and pelvis after 100 cc Omnipaque [address] scans at this location are performed using CT dose reduction for ALARA by means of automated exposure control. COMPARISON: Abdominal radiographs from 06/08/2022. CT abdomen and pelvis without contrast from 01/08/2018. FINDINGS: LOWER CHEST: There is bibasilar atelectasis. Moderate coronary artery calcification is noted. No othe r significant abnormality. LIVER: No significant abnormality. GALLBLADDER: No significant abnormality. BILE DUCTS: No significant abnormality. PANCREAS: No significant abnormality. SPLEEN: There is an unchanged upper pole cyst measuring 2.3 cm. No other significant abnormality. ADRENALS: No significant abnormality. RIGHT KIDNEY/URETER: No significant abnormality. LEFT KIDNEY/URETER: Simple appearing left renal cysts have not significantly changed, measuring up to 5.6 cm. No other significant abnormality. STOMACH/SMALL BOWEL: Multiple mildly thickened ileal loops are seen along the right lower quadrant wi th mild surrounding fat stranding. No other significant abnormality. COLON: Moderate distention of the colon is compatible with recent colonoscopy. There is noninflamed s igmoid diverticulosis. No other significant abnormality. APPENDIX: No significant abnormality. PERITONEUM: No free fluid. No free air. No fluid collection. LYMPH NODES: No significant adenopathy. VASCULATURE: There is mild generalized atherosclerosis. No other significant abnormality. URINARY BLADDER: A small amount of gas is seen along the bladder dome and more anteriorly and inferio rly along the bladder, possibly related to recent catheterization. No other significant abnormality. REPRODUCTIVE ORGANS: The prostate gland is mildly enlarged and calcified. No other significant abnorm ality. ADDITIONAL FINDINGS: None. BONES: No acute findings. There is mild spondylosis. IMPRESSION: 1. Evidence of uncomplicated mild ileitis without other acute findings and when the patient's abdomin al pain. 2. Moderate colonic distention is expected in the setting of recent colonoscopy. 3. Additional findings as above. Signer Name: Reno Li MD Signed: 06/10/2022 1:00 PM Workstation Name: [id number]
--- NOTE | 2022-06-10 13:41 | Progress Note ---
Assessment and Plan Assessment and plan: #Colovesicular fistula Status post repair by general surgery on 06/08/2022 General surgery consulted; appreciate recs Continue antiemetics and analgesics as needed. Continue clear liquid diet. #Hypertension #Hyperlipidemia - home medications: Amlodipine 5 mg daily and atorvastatin 40 mg daily - current medications: Amlodipine 5 mg daily and atorvastatin 40 mg daily - SBP goal <160 and DBP goal <90 while inpatient - continue to monitor #GERD Continue IV Pepcid 20 mg twice daily. Can transition to home omeprazole 40 mg daily when patient can tolerate p.o. intake. #Obesity #Weight loss counseling #Exercise counseling - BMI 34.2 - Counseled patient on the importance of weight loss, incorporating exercise, and dietary changes (lean meats, fresh fruits and vegetables, and water intake). Patient expresses understanding. - Time: +15 min #Advanced care planning -Disease education conducted, care plan discussed, diagnoses discussed, prognosis discussed, and patient acknowledges understanding with care plan -Time: +30 min Disposition Plan: Continue medical management Total Time Spent with Patient (Minutes): 45 minutes History Interval history: No acute events overnight. Hospitalist Physical - Constitutional Vitals: Temp Pulse Resp BP Pulse Ox 98.2 F 60 18 123/75 92 06/10/22 11:35 06/10/22 11:35 06/10/22 11:35 06/10/22 11:35 06/10/22 11:35 General appearance: Present: mild distress, well-nourished, obese - EENT Eyes: Present: PERRL, EOM intact ENT: hearing intact, clear oral mucosa, dentition normal - Neck Neck: Present: supple, normal ROM - Respiratory Respiratory effort: normal Respiratory: bilateral: CTA - Cardiovascular Rhythm: regular Heart Sounds: Present: S1 & S2 - Extremities Extremities: no ischemia, pulses intact, pulses symmetrical, No edema, normal temperature, normal color, Full ROM Peripheral Pulses: within normal limits - Abdominal General gastrointestinal: soft, tender, non-distended, normal bowel sounds Localized gastrointestinal: tender: epigastric periumbilical (Mostly crampy symptoms) - Integumentary Integumentary: Present: clear, warm, dry - Psychiatric Psychiatric: appropriate mood/affect, intact judgment & insight, memory intact, cooperative - Neurologic Neurologic: CNII-XII intact, moves all extremities - Allied Health Allied health notes reviewed: nursing Results - Labs CBC & Chem 7: 06/09/22 10:46 06/09/22 10:46 Labs: Laboratory Last Values WBC 9.0 K/mm3 (4.5-11.0) 06/09/22 10:46 RBC 4.93 M/mm3 (3.65-5.03) 06/09/22 10:46 Hgb 15.1 gm/dl (11.8-15.2) 06/09/22 10:46 Hct 45.7 % (35.5-45.6) H 06/09/22 10:46 MCV 93 fl (84-94) 06/09/22 10:46 MCH 31 pg (28-32) 06/09/22 10:46 MCHC 33 % (32-34) 06/09/22 10:46 RDW 15.5 % (13.2-15.2) H 06/09/22 10:46 Plt Count 156 K/mm3 (140-440) 06/09/22 10:46 Lymph % (Auto) 11.8 % (13.4-35.0) L 06/09/22 10:46 [place] % (Auto) 7.8 % (0.0-7.3) H 06/09/22 10:46 Eos % (Auto) 0.1 % (0.0-4.3) 06/09/22 10:46 Baso % (Auto) 0.2 % (0.0-1.8) 06/09/22 10:46 Lymph # (Auto) 1.1 K/mm3 (1.2-5.4) L 06/09/22 10:46 [place] # (Auto) 0.7 K/mm3 (0.0-0.8) 06/09/22 10:46 Eos # (Auto) 0.0 K/mm3 (0.0-0.4) 06/09/22 10:46 Baso # (Auto) 0.0 K/mm3 (0.0-0.1) 06/09/22 10:46 Add Manual Diff Complete 06/08/22 16:10 Total Counted 100 06/08/22 16:10 Seg Neutrophils % 80.1 % (40.0-70.0) H 06/09/22 10:46 Band Neutrophils % 0 % 06/08/22 16:10 Lymphocytes % (Manual) 2.0 % (13.4-35.0) L 06/08/22 16:10 Reactive Lymphs % (Man) 0 % 06/08/22 16:10 Monocytes % (Manual) 1.0 % (0.0-7.3) 06/08/22 16:10 Eosinophils % (Manual) 0 % (0.0-4.3) 06/08/22 16:10 Basophils % (Manual) 0 % (0.0-1.8) 06/08/22 16:10 Metamyelocytes % 0 % 06/08/22 16:10 Myelocytes % 0 % 06/08/22 16:10 Promyelocytes % 0 % 06/08/22 16:10 Blast Cells % 0 % 06/08/22 16:10 Nucleated RBC % Not Reportable 06/08/22 16:10 Seg Neutrophils # 7.2 K/mm3 (1.8-7.7) 06/09/22 10:46 Seg Neutrophils # Man 11.5 K/mm3 (1.8-7.7) H 06/08/22 16:10 Band Neutrophils # 0.0 K/mm3 06/08/22 16:10 Lymphocytes # (Manual) 0.2 K/mm3 (1.2-5.4) L 06/08/22 16:10 Abs React Lymphs (Man) 0.0 K/mm3 06/08/22 16:10 Monocytes # (Manual) 0.1 K/mm3 (0.0-0.8) 06/08/22 16:10 Eosinophils # (Manual) 0.0 K/mm3 (0.0-0.4) 06/08/22 16:10 Basophils # (Manual) 0.0 K/mm3 (0.0-0.1) 06/08/22 16:10 Metamyelocytes # 0.0 K/mm3 06/08/22 16:10 Myelocytes # 0.0 K/mm3 06/08/22 16:10 Promyelocytes # 0.0 K/mm3 06/08/22 16:10 Blast Cells # 0.0 K/mm3 06/08/22 16:10 WBC Morphology Not Reportable 06/08/22 16:10 WBC Morphology TNR 06/08/22 16:10 Hypersegmented Neuts Not Reportable 06/08/22 16:10 Hyposegmented Neuts Not Reportable 06/08/22 16:10 Hypogranular Neuts Not Reportable 06/08/22 16:10 Smudge Cells Not Reportable 06/08/22 16:10 Toxic Granulation Not Reportable 06/08/22 16:10 Toxic Vacuolation Not Reportable 06/08/22 16:10 Dohle Bodies Not Reportable 06/08/22 16:10 Pelger-Huet Anomaly Not Reportable 06/08/22 16:10 Breanna Rods Not Reportable 06/08/22 16:10 Platelet Estimate Consistent w auto 06/08/22 16:10 Clumped Platelets Not Reportable 06/08/22 16:10 Plt Clumps, EDTA Not Reportable 06/08/22 16:10 Large Platelets Not Reportable 06/08/22 16:10 Giant Platelets Not Reportable 06/08/22 16:10 Platelet Satelliting Not Reportable 06/08/22 16:10 Plt Morphology Comment Not Reportable 06/08/22 16:10 RBC Morphology Normal 06/08/22 16:10 Dimorphic RBCs Not Reportable 06/08/22 16:10 Polychromasia Not Reportable 06/08/22 16:10 Hypochromasia Not Reportable 06/08/22 16:10 Poikilocytosis Not Reportable 06/08/22 16:10 Anisocytosis Not Reportable 06/08/22 16:10 Microcytosis Not Reportable 06/08/22 16:10 Macrocytosis Not Reportable 06/08/22 16:10 Spherocytes Not Reportable 06/08/22 16:10 Pappenheimer Bodies Not Reportable 06/08/22 16:10 Sickle Cells Not Reportable 06/08/22 16:10 Target Cells Not Reportable 06/08/22 16:10 Tear Drop Cells Not Reportable 06/08/22 16:10 Ovalocytes Not Reportable 06/08/22 16:10 Helmet Cells Not Reportable 06/08/22 16:10 Wu-[place] Bodies Not Reportable 06/08/22 16:10 [place] Rings Not Reportable 06/08/22 16:10 [place] Cells Not Reportable 06/08/22 16:10 Bite Cells Not Reportable 06/08/22 16:10 Crenated Cell Not Reportable 06/08/22 16:10 Elliptocytes Not Reportable 06/08/22 16:10 Acanthocytes (Spur) Not Reportable 06/08/22 16:10 Rouleaux Not Reportable 06/08/22 16:10 Hemoglobin C Crystals Not Reportable 06/08/22 16:10 Schistocytes Not Reportable 06/08/22 16:10 Malaria parasites Not Reportable 06/08/22 16:10 Alexis Bodies Not Reportable 06/08/22 16:10 Hem Pathologist Commnt No 06/08/22 16:10 Sodium 141 mmol/L (137-145) 06/09/22 10:46 Potassium 4.2 mmol/L (3.6-5.0) 06/09/22 10:46 Chloride 105.4 mmol/L (98-107) 06/09/22 10:46 Carbon Dioxide 24 mmol/L (22-30) 06/09/22 10:46 Anion Gap 16 mmol/L 06/09/22 10:46 BUN 13 mg/dL (9-20) 06/09/22 10:46 Creatinine 0.7 mg/dL (0.8-1.3) L 06/09/22 10:46 Estimated GFR > 60 ml/min 06/09/22 10:46 BUN/Creatinine Ratio 19 % 06/09/22 10:46 Glucose 125 mg/dL (75-100) H 06/09/22 10:46 Calcium 8.9 mg/dL (8.4-10.2) 06/09/22 10:46 Total Bilirubin 0.40 mg/dL (0.1-1.2) 06/08/22 16:10 AST 14 units/L (5-40) 06/08/22 16:10 ALT 11 units/L (7-56) 06/08/22 16:10 Alkaline Phosphatase 98 units/L (35-129) 06/08/22 16:10 Total Protein 5.6 g/dL (6.3-8.2) L 06/08/22 16:10 Albumin 3.8 g/dL (3.9-5) L 06/08/22 16:10 Albumin/Globulin Ratio 2.1 % 06/08/22 16:10 Jimenez/IV: Voiding Method Urinal Active Medications - Current Medications Current Medications: Generic Name Dose Route Start Last Admin Trade Name Freq PRN Reason Stop Dose Admin Acetaminophen 650 mg 09/22/22 14:10 Acetaminophen 325 Mg Tab PO Q4H PRN Pain MILD(1-3)/Fever >100.5/MORRIS Famotidine 20 mg 06/08/22 15:00 06/10/22 09:45 Famotidine 20 Mg/2 Ml Inj IV 20 mg BID MILA Administration Heparin Sodium (Porcine) 5,000 unit 06/08/22 14:15 06/10/22 09:45 Heparin 5,000 Unit/1 Ml Vial SUB-Q 5,000 unit Q12HR MILA Administration Hydromorphone HCl 1 mg 06/09/22 13:00 06/10/22 13:09 Hydromorphone 1 Mg/1 Ml Inj IV 1 mg Q4H PRN Administration Pain , Severe (7-10) Dextrose 1,000 mls @ 75 mls/hr 06/09/22 08:00 06/10/22 07:00 D5w IV 75 mls/hr DIRECT MILA Administration Morphine Sulfate 2 mg 06/08/22 14:10 06/08/22 19:03 Morphine 2 Mg/1 Ml Inj IV 2 mg Q4H PRN Administration Pain, Moderate (4-6) Ondansetron HCl 4 mg 06/08/22 14:10 06/08/22 22:55 Ondansetron 4 Mg/2 Ml Inj IV 4 mg Q8H PRN Administration Nausea And Vomiting Sodium Chloride 10 ml 06/08/22 22:00 06/10/22 09:46 Sodium Chloride 0.9% 10 Ml Flush Syringe IV 10 ml BID MILA Administration Sodium Chloride 10 ml 06/08/22 14:10 Sodium Chloride 0.9% 10 Ml Flush Syringe IV PRN PRN LINE FLUSH Zolpidem Tartrate 5 mg 06/08/22 22:36 06/09/22 22:17 Zolpidem 5 Mg Tab PO 5 mg QHS PRN Administration Sleep
[2022-06-10] MEDS: ZOLPIDEM 5 MG TAB PO PRN (22:53)
[2022-06-11] MEDS: HYDROmorphone 1 MG/1 ML INJ IV PRN ×4 (03:19→21:53)
[2022-06-11] MEDS: DEXTROSE 5% IN WATER 1,000 ML IV SCH (07:57)
--- NOTE | 2022-06-11 10:57 | Progress Note ---
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 Patient was admitted after colonoscopy for abdominal pain. Patient is afebrile and stable, no leukocytosis with subjective mild improvement in abdominal pain. Unsure etiology of acute onset of abdominal pain after colonoscopy. May be due to inflammation with a history of chronic diverticulitis and inflammatory disease. Will start on Toradol and advance to full liquids. The patient can be discharged next 24 hours. Subjective Date of service: 06/11/22 Narrative: No acute events overnight. Patient had a CT scan of the abdomen pelvis yesterday that was essentially negative for any acute pathology with the exception of inflammation of some loops of ileum. Patient says his pain is little bit better compared to yesterday and he would like to slowly advance his diet. He still has pain requiring pain medication. He denies any nausea or vomiting. Objective Vital Signs - 12hr 06/10/22 06/11/22 06/11/22 23:00 03:19 03:49 Temperature Pulse Rate Respiratory 18 17 Rate Blood Pressure O2 Sat by Pulse 96 Oximetry 06/11/22 05:46 Temperature 97.9 F Pulse Rate 55 L Respiratory 18 Rate Blood Pressure 117/63 O2 Sat by Pulse 93 Oximetry - General physical appearance well developed, no distress, moderate pain - Eyes PERRL - ENT no hearing loss - Respiratory normal expansion, normal respiratory effort - Abdomen soft, distended, not guarding, not rigid, other (Generalized tenderness to deep palpation) - Labs 06/09/22 10:46 06/09/22 10:46 - Imaging CT scan - abdomen: report reviewed, image reviewed CT scan - pelvis: report reviewed, image reviewed
[2022-06-11] MEDS: HEPARIN 5,000 UNIT/1 ML VIAL SUB-Q SCH ×2 (11:43→21:36)
[2022-06-11] MEDS: FAMOTIDINE 20 MG/2 ML INJ IV SCH ×2 (11:43→21:36)
--- NOTE | 2022-06-11 11:55 | Progress Note ---
Assessment and Plan Assessment and plan: #Colovesicular fistula Status post repair by general surgery on 06/08/2022 General surgery consulted; appreciate recs Continue antiemetics and analgesics as needed. Transition to full liquid diet. #Hypertension #Hyperlipidemia - home medications: Amlodipine 5 mg daily and atorvastatin 40 mg daily - current medications: Amlodipine 5 mg daily and atorvastatin 40 mg daily - SBP goal <160 and DBP goal <90 while inpatient - continue to monitor #GERD Continue IV Pepcid 20 mg twice daily. Can transition to home omeprazole 40 mg daily when patient can tolerate p.o. intake. #Obesity #Weight loss counseling #Exercise counseling - BMI 34.2 - Counseled patient on the importance of weight loss, incorporating exercise, and dietary changes (lean meats, fresh fruits and vegetables, and water intake). Patient expresses understanding. - Time: +15 min #Advanced care planning -Disease education conducted, care plan discussed, diagnoses discussed, prognosis discussed, and patient acknowledges understanding with care plan -Time: +30 min Disposition Plan: Pending discharge tomorrow Total Time Spent with Patient (Minutes): 45 min History Interval history: No acute events overnight. Hospitalist Physical - Constitutional Vitals: Temp Pulse Resp BP Pulse Ox 97.9 F 55 L 18 117/63 93 06/11/22 05:46 06/11/22 05:46 06/11/22 05:46 06/11/22 05:46 06/11/22 05:46 General appearance: Present: mild distress, well-nourished, obese - EENT Eyes: Present: PERRL, EOM intact ENT: hearing intact, clear oral mucosa, dentition normal - Neck Neck: Present: supple, normal ROM - Respiratory Respiratory effort: normal Respiratory: bilateral: CTA - Cardiovascular Rhythm: regular Heart Sounds: Present: S1 & S2 - Extremities Extremities: no ischemia, pulses intact, pulses symmetrical, No edema, normal temperature, normal color Peripheral Pulses: within normal limits - Abdominal General gastrointestinal: soft, tender, non-distended, normal bowel sounds Localized gastrointestinal: tender: epigastric periumbilical - Integumentary Integumentary: Present: clear, warm, dry - Psychiatric Psychiatric: appropriate mood/affect, intact judgment & insight, memory intact, cooperative - Neurologic Neurologic: CNII-XII intact, moves all extremities - Allied Health Allied health notes reviewed: nursing Results - Labs CBC & Chem 7: 06/09/22 10:46 06/09/22 10:46 Labs: Laboratory Last Values WBC 9.0 K/mm3 (4.5-11.0) 06/09/22 10:46 RBC 4.93 M/mm3 (3.65-5.03) 06/09/22 10:46 Hgb 15.1 gm/dl (11.8-15.2) 06/09/22 10:46 Hct 45.7 % (35.5-45.6) H 06/09/22 10:46 MCV 93 fl (84-94) 06/09/22 10:46 MCH 31 pg (28-32) 06/09/22 10:46 MCHC 33 % (32-34) 06/09/22 10:46 RDW 15.5 % (13.2-15.2) H 06/09/22 10:46 Plt Count 156 K/mm3 (140-440) 06/09/22 10:46 Lymph % (Auto) 11.8 % (13.4-35.0) L 06/09/22 10:46 [place] % (Auto) 7.8 % (0.0-7.3) H 06/09/22 10:46 Eos % (Auto) 0.1 % (0.0-4.3) 06/09/22 10:46 Baso % (Auto) 0.2 % (0.0-1.8) 06/09/22 10:46 Lymph # (Auto) 1.1 K/mm3 (1.2-5.4) L 06/09/22 10:46 [place] # (Auto) 0.7 K/mm3 (0.0-0.8) 06/09/22 10:46 Eos # (Auto) 0.0 K/mm3 (0.0-0.4) 06/09/22 10:46 Baso # (Auto) 0.0 K/mm3 (0.0-0.1) 06/09/22 10:46 Add Manual Diff Complete 06/08/22 16:10 Total Counted 100 06/08/22 16:10 Seg Neutrophils % 80.1 % (40.0-70.0) H 06/09/22 10:46 Band Neutrophils % 0 % 06/08/22 16:10 Lymphocytes % (Manual) 2.0 % (13.4-35.0) L 06/08/22 16:10 Reactive Lymphs % (Man) 0 % 06/08/22 16:10 Monocytes % (Manual) 1.0 % (0.0-7.3) 06/08/22 16:10 Eosinophils % (Manual) 0 % (0.0-4.3) 06/08/22 16:10 Basophils % (Manual) 0 % (0.0-1.8) 06/08/22 16:10 Metamyelocytes % 0 % 06/08/22 16:10 Myelocytes % 0 % 06/08/22 16:10 Promyelocytes % 0 % 06/08/22 16:10 Blast Cells % 0 % 06/08/22 16:10 Nucleated RBC % Not Reportable 06/08/22 16:10 Seg Neutrophils # 7.2 K/mm3 (1.8-7.7) 06/09/22 10:46 Seg Neutrophils # Man 11.5 K/mm3 (1.8-7.7) H 06/08/22 16:10 Band Neutrophils # 0.0 K/mm3 06/08/22 16:10 Lymphocytes # (Manual) 0.2 K/mm3 (1.2-5.4) L 06/08/22 16:10 Abs React Lymphs (Man) 0.0 K/mm3 06/08/22 16:10 Monocytes # (Manual) 0.1 K/mm3 (0.0-0.8) 06/08/22 16:10 Eosinophils # (Manual) 0.0 K/mm3 (0.0-0.4) 06/08/22 16:10 Basophils # (Manual) 0.0 K/mm3 (0.0-0.1) 06/08/22 16:10 Metamyelocytes # 0.0 K/mm3 06/08/22 16:10 Myelocytes # 0.0 K/mm3 06/08/22 16:10 Promyelocytes # 0.0 K/mm3 06/08/22 16:10 Blast Cells # 0.0 K/mm3 06/08/22 16:10 WBC Morphology Not Reportable 06/08/22 16:10 WBC Morphology TNR 06/08/22 16:10 Hypersegmented Neuts Not Reportable 06/08/22 16:10 Hyposegmented Neuts Not Reportable 06/08/22 16:10 Hypogranular Neuts Not Reportable 06/08/22 16:10 Smudge Cells Not Reportable 06/08/22 16:10 Toxic Granulation Not Reportable 06/08/22 16:10 Toxic Vacuolation Not Reportable 06/08/22 16:10 Dohle Bodies Not Reportable 06/08/22 16:10 Pelger-Huet Anomaly Not Reportable 06/08/22 16:10 Breanna Rods Not Reportable 06/08/22 16:10 Platelet Estimate Consistent w auto 06/08/22 16:10 Clumped Platelets Not Reportable 06/08/22 16:10 Plt Clumps, EDTA Not Reportable 06/08/22 16:10 Large Platelets Not Reportable 06/08/22 16:10 Giant Platelets Not Reportable 06/08/22 16:10 Platelet Satelliting Not Reportable 06/08/22 16:10 Plt Morphology Comment Not Reportable 06/08/22 16:10 RBC Morphology Normal 06/08/22 16:10 Dimorphic RBCs Not Reportable 06/08/22 16:10 Polychromasia Not Reportable 06/08/22 16:10 Hypochromasia Not Reportable 06/08/22 16:10 Poikilocytosis Not Reportable 06/08/22 16:10 Anisocytosis Not Reportable 06/08/22 16:10 Microcytosis Not Reportable 06/08/22 16:10 Macrocytosis Not Reportable 06/08/22 16:10 Spherocytes Not Reportable 06/08/22 16:10 Pappenheimer Bodies Not Reportable 06/08/22 16:10 Sickle Cells Not Reportable 06/08/22 16:10 Target Cells Not Reportable 06/08/22 16:10 Tear Drop Cells Not Reportable 06/08/22 16:10 Ovalocytes Not Reportable 06/08/22 16:10 Helmet Cells Not Reportable 06/08/22 16:10 [place] Bodies Not Reportable 06/08/22 16:10 [place] Rings Not Reportable 06/08/22 16:10 Ana Cells Not Reportable 06/08/22 16:10 Bite Cells Not Reportable 06/08/22 16:10 Crenated Cell Not Reportable 06/08/22 16:10 Elliptocytes Not Reportable 06/08/22 16:10 Acanthocytes (Spur) Not Reportable 06/08/22 16:10 Rouleaux Not Reportable 06/08/22 16:10 Hemoglobin C Crystals Not Reportable 06/08/22 16:10 Schistocytes Not Reportable 06/08/22 16:10 Malaria parasites Not Reportable 06/08/22 16:10 Alexis Bodies Not Reportable 06/08/22 16:10 Hem Pathologist Commnt No 06/08/22 16:10 Sodium 141 mmol/L (137-145) 06/09/22 10:46 Potassium 4.2 mmol/L (3.6-5.0) 06/09/22 10:46 Chloride 105.4 mmol/L (98-107) 06/09/22 10:46 Carbon Dioxide 24 mmol/L (22-30) 06/09/22 10:46 Anion Gap 16 mmol/L 06/09/22 10:46 BUN 13 mg/dL (9-20) 06/09/22 10:46 Creatinine 0.7 mg/dL (0.8-1.3) L 06/09/22 10:46 Estimated GFR > 60 ml/min 06/09/22 10:46 BUN/Creatinine Ratio 19 % 06/09/22 10:46 Glucose 125 mg/dL (75-100) H 06/09/22 10:46 Calcium 8.9 mg/dL (8.4-10.2) 06/09/22 10:46 Total Bilirubin 0.40 mg/dL (0.1-1.2) 06/08/22 16:10 AST 14 units/L (5-40) 06/08/22 16:10 ALT 11 units/L (7-56) 06/08/22 16:10 Alkaline Phosphatase 98 units/L (35-129) 06/08/22 16:10 Total Protein 5.6 g/dL (6.3-8.2) L 06/08/22 16:10 Albumin 3.8 g/dL (3.9-5) L 06/08/22 16:10 Albumin/Globulin Ratio 2.1 % 06/08/22 16:10 Jimenez/IV: Voiding Method Urinal Active Medications - Current Medications Current Medications: Generic Name Dose Route Start Last Admin Trade Name Freq PRN Reason Stop Dose Admin Acetaminophen 650 mg 06/08/22 14:10 Acetaminophen 325 Mg Tab PO Q4H PRN Pain MILD(1-3)/Fever >100.5/MORRIS Famotidine 20 mg 06/08/22 15:00 06/11/22 11:43 Famotidine 20 Mg/2 Ml Inj IV 20 mg BID MILA Administration Heparin Sodium (Porcine) 5,000 unit 06/08/22 14:15 06/11/22 11:43 Heparin 5,000 Unit/1 Ml Vial SUB-Q 5,000 unit Q12HR MILA Administration Hydromorphone HCl 1 mg 06/09/22 13:00 06/11/22 11:34 Hydromorphone 1 Mg/1 Ml Inj IV 1 mg Q4H PRN Administration Pain , Severe (7-10) Dextrose 1,000 mls @ 75 mls/hr 06/09/22 08:00 06/11/22 07:57 D5w IV 75 mls/hr DIRECT MILA Administration Ketorolac Tromethamine 30 mg 06/11/22 12:00 Ketorolac 30 Mg/1 Ml Inj IV 06/11/22 12:01 ONCE ONE Ketorolac Tromethamine 15 mg 06/11/22 18:00 Ketorolac 30 Mg/1 Ml Inj IV 06/16/22 17:59 Q6HR MILA Morphine Sulfate 2 mg 06/08/22 14:10 06/08/22 19:03 Morphine 2 Mg/1 Ml Inj IV 2 mg Q4H PRN Administration Pain, Moderate (4-6) Ondansetron HCl 4 mg 06/08/22 14:10 06/08/22 22:55 Ondansetron 4 Mg/2 Ml Inj IV 4 mg Q8H PRN Administration Nausea And Vomiting Sodium Chloride 10 ml 06/08/22 22:00 06/11/22 11:44 Sodium Chloride 0.9% 10 Ml Flush Syringe IV 10 ml BID MILA Administration Sodium Chloride 10 ml 06/08/22 14:10 Sodium Chloride 0.9% 10 Ml Flush Syringe IV PRN PRN LINE FLUSH Zolpidem Tartrate 5 mg 06/08/22 22:36 06/10/22 22:53 Zolpidem 5 Mg Tab PO 5 mg QHS PRN Administration Sleep
[2022-06-11] MEDS ORDERED: KETOROLAC 30 MG/1 ML INJ IV ONE (12:00)
[2022-06-11] MEDS: KETOROLAC 30 MG/1 ML INJ IV SCH (18:22)
[2022-06-11] MEDS: ZOLPIDEM 5 MG TAB PO PRN (23:56)
[2022-06-12] MEDS: KETOROLAC 30 MG/1 ML INJ IV SCH ×2 (00:18→05:46)
[2022-06-12] MEDS: HYDROmorphone 1 MG/1 ML INJ IV PRN ×2 (03:34→09:00)
[2022-06-12 05:07] VITALS: BP 123/62
[2022-06-12] MEDS: FAMOTIDINE 20 MG/2 ML INJ IV SCH (09:00)
[2022-06-12] MEDS: HEPARIN 5,000 UNIT/1 ML VIAL SUB-Q SCH (09:00)
[2022-06-12] MEDS ORDERED: HYDROcodone/ACETAMINOPHEN 5-325 MG TAB PO PRN (10:13)
--- NOTE | 2022-06-12 11:34 | Discharge Summary ---
Providers - Providers Date of Admission: 06/08/22 14:10 Date of discharge: 06/12/22 Attending physician: KAREN RODARTE MD 06/08/22 14:10 Consult to Physician [CONS] Routine Comment: Consulting Provider: MARY LUJAN Physician Instructions: Reason For Exam: Acute abdominal pain Primary care physician: AARON RAY Hospitalization Reason for admission: Colovescular fistula with diverticulosis s/p repair Condition: Good Pertinent studies: Reviewed. Procedures: Correction of colovesicular fistula Hospital course: Patient is a 61-year-old male with past medical history of obesity, diverticulosis, hypertension, GERD, hyperlipidemia who presented to the to the hospital via direct admission after undergoing repair of colovesicular fistula with diverticulosis by general surgery on 06/08/2022. The patient tolerated the procedure well. The patient endorsed having abdominal cramping and nausea. The patient has since had an improvement in his diet. He will follow up with his category analyst in the outpatient setting. The patient is medically cleared for discharge. Disposition: 01 HOME / SELF CARE / HOMELESS Final Discharge Diagnosis (Prints w/discharge instructions): colovesicular fistula with diverticulosis, hypertension, GERD, hyperlipidemia, obesity Time spent for discharge: 45 min Core Measure Documentation - Palliative Care Palliative Care/ Comfort Measures: Not Applicable - Core Measures Any of the following diagnoses?: history only Exam - Constitutional Vitals: Temp Pulse Resp BP Pulse Ox 98.0 F 59 L 17 123/62 98 06/12/22 05:05 06/12/22 05:05 06/12/22 06:16 06/12/22 05:05 06/12/22 08:39 General appearance: Present: no acute distress, well-nourished, obese - EENT Eyes: Present: PERRL, EOM intact ENT: hearing intact, clear oral mucosa, dentition normal - Neck Neck: Present: supple, normal ROM - Respiratory Respiratory effort: normal Respiratory: bilateral: CTA - Cardiovascular Rhythm: regular Heart Sounds: Present: S1 & S2 - Extremities Extremities: no ischemia, pulses intact, pulses symmetrical, No edema, normal temperature, normal color, Full ROM Peripheral Pulses: within normal limits - Abdominal General gastrointestinal: Present: soft, tender, non-distended, normal bowel sounds Localized gastrointestinal: tender: diffuse Male genitourinary: Present: deferred - Rectal Rectal Exam: deferred - Integumentary Integumentary: Present: clear, warm, dry - Musculoskeletal Musculoskeletal: strength equal bilaterally - Psychiatric Psychiatric: appropriate mood/affect, intact judgment & insight, memory intact, cooperative - Neurologic Neurologic: CNII-XII intact, moves all extremities - Allied Health Allied health notes reviewed: nursing Plan Activity: advance as tolerated Diet: low salt Additional Instructions: Patient is a 61-year-old male with past medical history of obesity, diverticulosis, hypertension, GERD, hyperlipidemia who presented to the to the hospital via direct admission after undergoing repair of colovesicular fistula with diverticulosis by general surgery on 06/08/2022. The patient tolerated the procedure well. The patient endorsed having abdominal cramping and nausea. The patient has since had an improvement in his diet. He will follow up with his category analyst in the outpatient setting. The patient is medically cleared for discharge. Care Plan Goals: Patient is medically cleared for discharge. Assessment: Patient is a 61-year-old male with past medical history of obesity, diverticulosis, hypertension, GERD, hyperlipidemia who presented to the to the hospital via direct admission after undergoing repair of colovesicular fistula with diverticulosis by general surgery on 06/08/2022. The patient tolerated the procedure well. The patient endorsed having abdominal cramping and nausea. The patient has since had an improvement in his diet. He will follow up with his category analyst in the outpatient setting. The patient is medically cleared for discharge. Follow up with: AARON RAY MD [Primary Care Provider] - 7 Days MARY LUJAN MD [Staff Physician] - 7 Days Forms: Work/School Release Form
[2022-06-12] MEDS ORDERED: FAMOTIDINE 20 MG TAB PO SCH (22:00)
== END 2022-06-12 12:19 | disposition home or self-care (01) | DRG 700 ==
LOC: GIO 06:49 → 3A 14:10
PROVIDERS: ADMIT Internal Medicine; ATTEND Student in an Organized Health Care Education/Training Program
PROC: 0DBE8ZX Excision of Large Intestine, Via Natural or Artificial Opening Endoscopic, Diagnostic (ICD-10-PCS; principal; 2022-06-08)
DX: N32.1 Vesicointestinal fistula (principal); K57.30 Diverticulosis of large intestine without perforation or abscess without bleeding; K21.9 Gastro-esophageal reflux disease without esophagitis; I10 Essential (primary) hypertension; F17.200 Nicotine dependence, unspecified, uncomplicated; E78.2 Mixed hyperlipidemia; E66.9 Obesity, unspecified; Z71.3 Dietary counseling and surveillance; Z68.34 Body mass index [BMI] 34.0-34.9, adult; Z82.49 Family history of ischemic heart disease and other diseases of the circulatory system; Z88.8 Allergy status to other drugs, medicaments and biological substances
CPT/HCPCS: 36415; 74019; 74177; 80048; 80053; 85007; 85025; 88305; G0378; J1815; J3490; J0692; J1170; J1200; J1610; J1644; J1885; J2270; J2405; J2704; J2765; J7030; J7070; Q9967